=== PATIENT | female | born 1970 | race Caucasian/White ===

== ENCOUNTER 2016-10-17 21:34 | Emergency (ER) | payer OTHER ==
[~2016-10-17 21:34] MED LIST: CIPR500T3 PO; ESCI20TA PO; FLOM5CAP PO; MELA1TAB15 PO; OMEP20CA3 PO; OXYC1TAB23 PO; PYRI200T5 PO; TAMO20TA4 PO; TOPI100T PO; VITMTA PO; ZYRT10CA PO
[2016-10-17 22:42] LABS: BASO % 0.3 % (0.0-1.0); EOS # 0.2 K/mm3 (0.0-0.50); EOS % 3.3 % (0.0-3.0); LARGE UNSTAINED CELL # 0.1 K/mm3 (0.0-0.4); LARGE UNSTAINED CELL % 2.5 % (0.0-4.0); LYMPH # 0.8 K/mm3 (1.5-4.5); LYMPH % 16.9 % (24.0-44.0); MONO # 0.3 K/mm3 (0.0-0.8); MONO % 6.1 % (0.0-5.0); NEUTROPHILS # 3.5 K/mm3 (1.8-7.7); NEUTROPHILS % 70.9 % (36.0-66.0); PLATELET COUNT, AUTOMATED 241 k/mm3 (150-450); RED CELL DISTRIBUTION WIDTH 13.2 % (11.5-14.5); WHITE BLOOD COUNT 4.9 K/mm3 (4.0-10.0)
[2016-10-17 23:09] LABS: ANION GAP 9 MEQ/L (8-16); BLOOD UREA NITROGEN 15 MG/DL (7-18); CALCIUM LEVEL 8.8 MG/DL (8.5-10.1); CARBON DIOXIDE LEVEL 25 MEQ/L (21-32); CHLORIDE LEVEL 107 MEQ/L (98-107); CREATININE FOR GFR 0.81 MG/DL (0.55-1.02); GLOMERULAR FILTRATION RATE > 60.0 (>58); GLUCOSE, FASTING 190 MG/DL (70-105); POTASSIUM SERUM 3.3 MEQ/L (3.5-5.1); SODIUM LEVEL 141 MEQ/L (136-145)
[2016-10-18] MEDS ORDERED: MAGNESIUM CITRATE 300 ML BTL As Ordered ONE (00:42)
[2016-10-18] MEDS ORDERED: POTASSIUM CHLORIDE 10 MEQ SR TABLET As Ordered ONE (00:42)
--- NOTE | 2016-10-18 01:05 | REP ---
Clinical: abdominal pain. Technique: Upright view of the chest with supine and upright views of the abdomen and pelvis. Findings: Frontal upright view of the chest demonstrates no acute cardiopulmonary process or free air below the diaphragm to suspect pneumoperitoneum. Supine and upright views of the abdomen and pelvis demonstrate nonspecific bowel gas pattern without obstruction or perforation. Right ureteral stent and IUD in satisfactory position. No organomegaly. No abnormal calcifications. Skeletal structures normal for age. Impression: Nonspecific bowel gas pattern. Signed by Zeke Kong MD 10/18/2016 12:56 A
--- NOTE | 2016-10-18 01:22 | EDDOCDS ---
Nurse's Notes [facility] Name: Lindsay Duarte Age: 46 yrs Sex: Female : 1970 Arrival Date: 10/17/2016 Time: 21:34 Bed 17 Private MD: Silvana Black Diagnosis: Constipation;Hypokalemia-mild, resolved Presentation: 10/17 21:38 Presenting complaint: Patient states: had stent placement and surgery this past weekend cz for kidney stones pt has continued to have right sided abdominal/flank pain and states has constipation. pt hasnt had a bowel since last and is only voiding in small amounts. Acute neurological deficits are not present. Mechanism of Injury: No Mechanism of Injury. Adult Sepsis Screening: The patient does not have new or worsening altered mentation. Patient's respiratory rate is less than 22. Systolic blood pressure is greater than 100. Patient has a qSOFA score of 0- Negative Sepsis Screen. Suicide/Homicide risk assessment- the patient denies having any suicidal and/or homicidal ideations and does not present with any other emotional, behavioral or mental health complaints. Status: Patient is not a client services analyst or dependent. Transition of care: patient was not received from another setting of care. 21:38 Acuity: KIKO Level 3 cz 21:38 Method Of Arrival: Walkin/Carried/Asstd cz Triage Assessment: 21:44 General: Appears uncomfortable. Pain: Location: right flank Pain currently is 7 out of cz 10 on a pain scale. HIV screening NA for this visit Offered previously. TILER: 21:44 pt has IUD cz Historical: - Allergies: Reglan (itchy); - Home Meds: 1. calcium carbonate 600 mg (1,500 mg) Oral tab 1250 mg daily 2. carboplatin- taxol 175 mg chemo drug 3. Co Q-10 30 mg oral cap daily 4. escitalopram oxalate 20 mg oral tab 1 tab once daily 5. multivitamin Oral tab 1 tab 6. omeprazole 20 mg Oral cpDR 1 cap once daily 7. tamoxifen 20 mg oral tab 1 tab once daily 8. topiramate 100 mg oral cp24 1 cap once daily 9. Zyrtec 10 mg Oral tab 1 tab once daily 10. Cipro 500 mg Oral tab every 12 hours 11. oxycodone-acetaminophen 5-325 mg/5 mL Oral soln every 4 hours (Last dose: 10/17/2016 10:30) 12. tamsulosin 0.4 mg oral cp24 - PMHx: breast cancer; GERD; Migraines; Seasonal Allergies; - PSHx: stent placement; bladder sling; wisdom teeth extraction; llymph gland removal right side; - The history from nurses notes was reviewed: and I agree with what is documented. - Social history: Smoking status: Patient states was never smoker of tobacco. No barriers to communication noted, The patient speaks fluent Hungarian, Speaks appropriately for age. - : The pt / caregiver states he / she is not on anticoagulants. Home medication list is obtained from [employer] import data. - Hospitalizations: : No recent hospitalization is reported. - Exposure Risk Screening:: None identified. - Immunization history:: All immunizations up-to-date. - Family history: Not pertinent. - Social history:: the patient is a non-smoker, the patient does not drink alcohol. Screenin:20 Screening information is obtained from the patient. Fall risk: No risks identified. shaniqua Assistance ADL's: requires no assistance with activities of daily living. Abuse/DV Screen: The patient / caregiver reports he/she is: not in a situation that causes fear, pain or injury. Pt/SO Interaction is appropriate. Nutritional screening: No deficits noted. Advance Directives: Currently, there is no health care proxy. There is no active DNR order. There is no living will. There is no Power of Warehouse Pricing And Inventory Clerk. Advance directive information has not previously been placed in an [facility] medical record. home support is adequate. Assessment: 22:18 General: Appears uncomfortable, Behavior is appropriate for age, cooperative. Pain: shaniqua Location: abdomen and right flank and back Pain currently is 7 out of 10 on a pain scale. back. Neurological: No deficits noted. EENT: No deficits noted. Cardiovascular: No deficits noted. Respiratory: No deficits noted. GI: Abdomen is flat, distended. Derm: Skin is pink, warm & dry. Musculoskeletal: No deficits noted. 23:30 General: Pt has expelled oil retention enema without stool present. Dr. Newberry notified..shaniqua 23:30 General: Appears uncomfortable. Neurological: No deficits noted. Cardiovascular: No shaniqua deficits noted. Respiratory: No deficits noted. GI: Abdomen is distended. 01/04 00:08 General: Pt passing small amounts constipated stools.. shaniqua 00:30 Reassessment: Patient states symptoms have improved. Pt has had a moderate amount of shaniqua hard stool. Dr. Newberry notified.. 01:14 Reassessment: Patient appears in no apparent distress at this time. Patient states shaniqua feeling better. Neurological: No deficits noted. Cardiovascular: No deficits noted. Respiratory: No deficits noted. GI: Abdomen is distended. Derm: Skin is pink, warm & dry. Vital Signs: 10/17 21:36 BP 143 / 87; Pulse 103; Resp 18; Temp 97.4(O); Pulse Ox 97% on R/A; Weight 88.45 kg gr2 (R); Height 5 ft. 8 in. (172.72 cm) (R); Pain 8/10; 10/18 00:31 BP 170 / 106; Pulse 77; Resp 20; Temp 99.1(O); Pulse Ox 99% on R/A; shaniqua 00:39 BP 146 / 94 LA Supine (man/); shaniqua 10/17 21:36 Body Mass Index 29.65 (88.45 kg, 172.72 cm) gr2 Vitals: 10/17 21:36 Log In Time: October 17, 2016 at 21:36. gr2 ED Course: 21:36 Patient visited by Dorcas Corcoran. gr2 21:36 Silvana Black is Private Physician. gr2 21:36 Patient moved to Waiting gr2 21:38 Patient visited by Dorcas Corcorna. gr2 21:38 Patient moved to Pre RCE gr2 21:41 Triage Initiated cz 21:56 Barbara Mendes,RN is Primary Nurse. ar3 21:56 Patient moved to 17 ar3 22:06 Jones Newberry MD is Attending Physician. pc 22:18 Patient visited by Barbara Mendes RN. shaniqua 22:20 The patient / caregiver is instructed regarding the plan of care and ED course. shaniqua 22:21 Patient visited by Jones Newberry MD. pc 22:30 Inserted saline lock: 20 gauge in left antecubital area and blood collected. No shaniqua procedures done that require assistance. 22:33 CBC with Diff Sent. shaniqua 22:33 MED Profile Sent. shaniqua 22:33 Urinalysis Sent. shaniqua 22:33 Urine Culture Sent. shaniqua 23:15 Patient visited by Barbara Mendes RN. shaniqua 23:47 Patient visited by Barbara Mendes RN. shaniqua 10/18 00:06 Patient visited by Barbara Mendes RN. shaniqua 00:30 Patient visited by Barbara Mendes RN. shaniqua 00:37 Silvana Black is Referral Physician. pc 01:16 Discontinued lock intact, bleeding controlled, pressure dressing applied, No shaniqua redness/swelling at site. 01:22 [facility] Payment Agreement was scanned into [employer] and attached to record. jp5 Administered Medications: 01:14 Drug: Magnesium Citrate 300 ml [magnesium citrate oral solution (300 mL)] Route: PO; shaniqua 01:14 Drug: Potassium Chloride 40 mEq [potassium chloride ER 10 mEq tablet,extended release shaniqua (4 tabs)] Route: PO; Order Results: Lab Order: CBC with Diff; SPEC'M 10/17/16 22:30 Test: WHITE BLOOD COUNT; Value: 4.9; Range: 4.0-10.0; Units: K/mm3; Status: F Test: RED BLOOD COUNT; Value: 4.14; Range: 4.00-5.40; Units: M/mm3; Status: F Test: HEMOGLOBIN; Value: 12.0; Range: 12.0-16.0; Units: g/dl; Status: F Test: HEMATOCRIT; Value: 36.4; Range: 36.0-47.0; Units: %; Status: F Test: MEAN CORPUSCULAR VOLUME; Value: 88.0; Range: 80.0-96.0; Units: fl; Status: F Test: MEAN CORPUSCULAR HEMOGLOBIN; Value: 29.0; Range: 27.0-33.0; Units: pg; Status: F Test: MEAN CORPUSCULAR HGB CONC; Value: 33.0; Range: 32.0-36.5; Units: g/dl; Status: F Test: RED CELL DISTRIBUTION WIDTH; Value: 13.2; Range: 11.5-14.5; Units: %; Status: F Test: PLATELET COUNT, AUTOMATED; Value: 241; Range: 150-450; Units: k/mm3; Status: F Test: NEUTROPHILS %; Value: 70.9; Range: 36.0-66.0; Abnormal: Above high normal; Units: %; Status: F Test: LYMPH %; Value: 16.9; Range: 24.0-44.0; Abnormal: Below low normal; Units: %; Status: F Test: MONO %; Value: 6.1; Range: 0.0-5.0; Abnormal: Above high normal; Units: %; Status: F Test: EOS %; Value: 3.3; Range: 0.0-3.0; Abnormal: Above high normal; Units: %; Status: F Test: BASO %; Value: 0.3; Range: 0.0-1.0; Units: %; Status: F Test: LARGE UNSTAINED CELL %; Value: 2.5; Range: 0.0-4.0; Units: %; Status: F Test: NEUTROPHILS #; Value: 3.5; Range: 1.8-7.7; Units: K/mm3; Status: F Test: LYMPH #; Value: 0.8; Range: 1.5-4.5; Abnormal: Below low normal; Units: K/mm3; Status: F Test: MONO #; Value: 0.3; Range: 0.0-0.8; Units: K/mm3; Status: F Test: EOS #; Value: 0.2; Range: 0.0-0.50; Units: K/mm3; Status: F Test: BASO #; Value: 0.0; Range: 0.0-0.2; Units: K/mm3; Status: F Test: LARGE UNSTAINED CELL #; Value: 0.1; Range: 0.0-0.4; Units: K/mm3; Status: F Lab Order: MED Profile; SPEC'M 10/17/16 22:30 Test: GLUCOSE, FASTING; Value: 190; Range: 70-105; Abnormal: Above high normal; Units: MG/DL; Status: F Test: BLOOD UREA NITROGEN; Value: 15; Range: 7-18; Units: MG/DL; Status: F Test: CREATININE FOR GFR; Value: 0.81; Range: 0.55-1.02; Units: MG/DL; Status: F Test: GLOMERULAR FILTRATION RATE; Value: > 60.0; Range: >58; Status: F Test: SODIUM LEVEL; Value: 141; Range: 136-145; Units: MEQ/L; Status: F Test: POTASSIUM SERUM; Value: 3.3; Range: 3.5-5.1; Abnormal: Below low normal; Units: MEQ/L; Status: F Test: CHLORIDE LEVEL; Value: 107; Range: 98-107; Units: MEQ/L; Status: F Test: CARBON DIOXIDE LEVEL; Value: 25; Range: 21-32; Units: MEQ/L; Status: F Test: ANION GAP; Value: 9; Range: 8-16; Units: MEQ/L; Status: F Test: CALCIUM LEVEL; Value: 8.8; Range: 8.5-10.1; Units: MG/DL; Status: F Test Note: ; Units are mL/min/1.73 m2 Chronic Kidney Disease Staging per NKF: Stage I & II GFR >=60 Normal to Mildly Decreased Stage III GFR 30-59 Moderately Decreased Stage IV GFR 15-29 Severely Decreased Stage V GFR <15 Very Little GFR Left ESRD GFR <15 on BROOM BUILDER Lab Order: Urinalysis; SPEC'M 10/17/16 22:30 Test: APPEARANCE, URINE; Value: CLOUDY; Range: CLEAR; Abnormal: Above high normal; Status: F Test: COLOR, URINE; Value: TONY; Range: YELLOW; Status: F Test: PH,URINE; Value: 6.0; Range: 5.0-9.0; Units: UNITS; Status: F Test: SPECIFIC GRAVITY URINE AUTO; Value: 1.014; Range: 1.002-1.035; Status: F Test: PROTEIN, URINE AUTO; Value: 2+; Range: NEGATIVE; Abnormal: Above high normal; Units: mg/dL; Status: F Test: GLUCOSE, URINE (UA) AUTO; Value: NEGATIVE; Range: NEGATIVE; Units: mg/dL; Status: F Test: KETONE, URINE AUTO; Value: NEGATIVE; Range: NEGATIVE; Units: mg/dL; Status: F Test: UROBILINOGEN, URINE AUTO; Value: 2.0; Range: 0.0-2.0; Abnormal: Above high normal; Units: mg/dL; Status: F Test: BILIRUBIN, URINE AUTO; Value: NEGATIVE; Range: NEGATIVE; Status: F Test: NITRITE, URINE AUTO; Value: POSITIVE; Range: NEGATIVE; Status: F Test: LEUKOCYTE ESTERASE, URINE AUTO; Value: 3+; Range: NEGATIVE; Abnormal: Above high normal; Status: F Test: BLOOD, URINE BLOOD; Value: 3+; Range: NEGATIVE; Abnormal: Above high normal; Status: F Test: WBC, URINE AUTO; Value: 81; Range: 0-3; Abnormal: Above high normal; Units: /HPF; Status: F Test: RBC, URINE AUTO; Value: TNTC; Range: 0-3; Abnormal: Above high normal; Units: /HPF; Status: F Test: BACTERIA, URINE AUTO; Value: 1+; Range: NEGATIVE; Abnormal: Above high normal; Status: F Test: SQUAMOUS EPITHELIAL CELL UR AU; Value: 4; Range: 0-6; Units: /HPF; Status: F Test: MUCUS, URINE; Value: SMALL; Range: NEGATIVE; Status: F Test: HYALINE CAST, URINE AUTO; Value: 0; Range: 0-1; Units: /LPF; Status: F Test: AMORPHOUS SEDIMENT; Value: SMALL; Range: NEGATIVE; Abnormal: Above high normal; Status: F Outcome: 00:37 Discharge ordered by Provider. 01:16 Discharge Assessment: patient administered narcotics - no. The following High Risk shaniqua Discharge criteria are identified: None. Discharged to home ambulatory, with family. Condition: improved. No special radiology studies were completed. Property :Personal belongings accompany Pt. 01:21 Patient left the ED. shaniqua Signatures: Jones Newberry MD MD pc Sovie, Carolyn,RN RN Yash Ring, RN RN Ana Wilkinson, MANAGER ARCHITECTURAL MANAGER ARCHITECTURAL ar3 Dorcas Corcoran2 Em Hutchins jp5 MTDMark
--- NOTE | 2016-10-18 01:22 | EDDOCDS ---
Physician Documentation [facility] Name: Lindsay Duarte Age: 46 yrs Sex: Female : 1970 Arrival Date: 10/17/2016 Time: 21:34 Bed 17 Private MD: Silvana Black Disposition: 10/18 00:35 Critical Care: Critical care not applicable. pc Disposition: 10/18/16 00:37 Discharged to Home/Self Care. Impression: Constipation, Hypokalemia - mild, resolved. - Condition is Stable. - Discharge Instructions: Constipation, Adult. - Prescriptions for Miralax 17 gram/dose - take 17 gram by ORAL route once daily As needed dilute in 8 ounces of water or juice; 1 bottle. - Medication Reconciliation, Local Pharmacy Hours form. - Follow up: Silvana Black; When: Call to arrange an appointment; Reason: Continuance of care. - Problem is an ongoing problem. - Symptoms have improved. HPI: 10/17 22:25 This 46 yrs old Female presents to ER via Walkin/Carried/Asstd with pc complaints of Possible Kidney Stone, Constipation. 22:25 The history is obtained from the patient. She is 3 days s/p right ureteral stent pc placement and lithotripsy for multiple obstructing right ureteral stones. She has adán constipated from Percocet, with no bowel movement in 4 days. She has been having right and left flank pain without nausea. She as been drinking fluids but says she has had dark urine with small volumes. She denies any fevers or chills. Historical: - Allergies: Reglan (itchy); - Home Meds: 1. calcium carbonate 600 mg (1,500 mg) Oral tab 1250 mg daily 2. carboplatin- taxol 175 mg chemo drug 3. Co Q-10 30 mg oral cap daily 4. escitalopram oxalate 20 mg oral tab 1 tab once daily 5. multivitamin Oral tab 1 tab 6. omeprazole 20 mg Oral cpDR 1 cap once daily 7. tamoxifen 20 mg oral tab 1 tab once daily 8. topiramate 100 mg oral cp24 1 cap once daily 9. Zyrtec 10 mg Oral tab 1 tab once daily 10. Cipro 500 mg Oral tab every 12 hours 11. oxycodone-acetaminophen 5-325 mg/5 mL Oral soln every 4 hours (Last dose: 10/17/2016 10:30) 12. tamsulosin 0.4 mg oral cp24 - PMHx: breast cancer; GERD; Migraines; Seasonal Allergies; - PSHx: stent placement; bladder sling; wisdom teeth extraction; llymph gland removal right side; - The history from nurses notes was reviewed: and I agree with what is documented. - Social history: Smoking status: Patient states was never smoker of tobacco. No barriers to communication noted, The patient speaks fluent Bahraini, Speaks appropriately for age. - : The pt / caregiver states he / she is not on anticoagulants. Home medication list is obtained from [employer] import data. - Hospitalizations: : No recent hospitalization is reported. - Exposure Risk Screening:: None identified. - Immunization history:: All immunizations up-to-date. - Family history: Not pertinent. - Social history:: the patient is a non-smoker, the patient does not drink alcohol. 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 pc Exam: 22:25 General Appearance: alert, the patient is in mild distress. pc 22:25 EENT: normal eye inspection, ears, nose and throat normal, pharynx normal, mucous membranes moist 22:25 Neck: The exam reveals no acute abnormalities. ROM is normal and painless. No nuchal rigidity is noted.. 22:25 Respiratory: no respiratory distress, normal breath sounds. 22:25 CVS: regular pulse rate, regular rhythm, normal S1 and S2, no murmurs, strong peripheral pulses. 22:25 Abdomen: soft, distended, mild tenderness in the right lower quadrant and left lower quadrant, without rebound, voluntary guarding is not appreciated, involuntary guarding is not appreciated, bowel sounds diminished. 22:25 Back: CVA tenderness is noted bilaterally. 22:25 Skin: skin color is normal, warm, dry. 22:25 Extremities: The extremities have a grossly normal appearance, are non-tender, without acute ROM abnormalities. 22:25 Neuro: oriented x 3, cranial nerves normal as tested. 22:25 Psych: normal mood. Vital Signs: 21:36 BP 143 / 87; Pulse 103; Resp 18; Temp 97.4(O); Pulse Ox 97% on R/A; Weight 88.45 kg / gr2 195 lbs (R); Height 5 ft. 8 in. (172.72 cm) (R); Pain 8/10; 10/18 00:31 BP 170 / 106; Pulse 77; Resp 20; Temp 99.1(O); Pulse Ox 99% on R/A; shaniqua 00:39 BP 146 / 94 LA Supine (man/); shaniqua 10/17 21:36 Body Mass Index 29.65 (88.45 kg, 172.72 cm) gr2 MDM: 10/17 22:21 IV Saline Lock ordered. pc 22:22 CBC with Diff Ordered. EDMS 22:22 MED Profile Ordered. EDMS 22:22 Urinalysis Ordered. EDMS 22:22 Urine Culture Ordered. EDMS 22:22 Abdomen, Flat\E\Upright,PA Chest Ordered. EDMS 22:24 Data reviewed: The patient's [facility] records were accessed, as they were informed. pc 22:25 Differential Diagnosis: constipation, bilateral CVA pain with known stones, decreased pc urine output on Cipro r/o ARF. Plan: labs, imaging. 22:56 CBC with Diff Reviewed. pc 22:56 Urinalysis Reviewed. pc 22:59 Test interpretation: X-RAY - interpreted by me, 3-view abdomen series; constipation. pc 22:59 Enema - Oil Retention ordered. pc 23:12 MED Profile Reviewed. pc 23:35 Enema - [place] ordered. pc 10/18 00:35 Data reviewed: lab test results. Test interpretation: LAB - all labs as ordered have pc been reviewed, interpreted and considered in the overall management of the clinical presentation;. The patient has been re-examined and re-evaluated. The patient's symptoms have markedly improved after treatment, with a large stooling after enema. Disposition: The historical points, examination findings, and any diagnostic results supporting the provided diagnosis, were discussed with the patient or legal guardian. The need for outpatient follow up with the provider listed on their discharge instructions was discussed. They were encouraged to return to [facility], or the nearest ED, if symptoms worsen/persist, or for any other questions/concerns. 00:38 Magnesium Citrate Liquid 300 ml PO once; Dispense home with pt. Take in the morning pc ordered. 00:39 Potassium Chloride Extended Release Tablet 40 mEq PO once ordered. pc 01:22 [facility] Payment Agreement was scanned into [employer] and attached to record. jp5 Administered Medications: 01:14 Drug: Magnesium Citrate 300 ml [magnesium citrate oral solution (300 mL)] Route: PO; shaniqua 01:14 Drug: Potassium Chloride 40 mEq [potassium chloride ER 10 mEq tablet,extended release shaniqua (4 tabs)] Route: PO; Signatures: Dispatcher [employer] Jones Nuñez MD MD pc Sovie, CarolynRN RN Yash Ring RN RN cz Price, Jennalee jp5 The chart was reviewed and I authenticate all verbal orders and agree with the evaluation and treatment provided.Attachments: 01:22 [facility] Payment Agreement [email or web address] MTDD
--- NOTE | 2016-10-20 02:23 | EDDOCDS ---
Physician Documentation [facility] Name: Lindsay Duarte Age: 46 yrs Sex: Female : 1970 Arrival Date: 10/17/2016 Time: 21:34 Bed 17 Private MD: Silvana Black Disposition: 10/18 00:35 Critical Care: Critical care not applicable. pc Disposition: 10/18/16 00:37 Discharged to Home/Self Care. Impression: Constipation, Hypokalemia - mild, resolved. - Condition is Stable. - Discharge Instructions: Constipation, Adult. - Prescriptions for Miralax 17 gram/dose - take 17 gram by ORAL route once daily As needed dilute in 8 ounces of water or juice; 1 bottle. - Medication Reconciliation, Local Pharmacy Hours form. - Follow up: Silvana Black; When: Call to arrange an appointment; Reason: Continuance of care. - Problem is an ongoing problem. - Symptoms have improved. HPI: 10/17 22:25 This 46 yrs old Female presents to ER via Walkin/Carried/Asstd with pc complaints of Possible Kidney Stone, Constipation. 22:25 The history is obtained from the patient. She is 3 days s/p right ureteral stent pc placement and lithotripsy for multiple obstructing right ureteral stones. She has adán constipated from Percocet, with no bowel movement in 4 days. She has been having right and left flank pain without nausea. She as been drinking fluids but says she has had dark urine with small volumes. She denies any fevers or chills. Historical: - Allergies: Reglan (itchy); - Home Meds: 1. calcium carbonate 600 mg (1,500 mg) Oral tab 1250 mg daily 2. carboplatin- taxol 175 mg chemo drug 3. Co Q-10 30 mg oral cap daily 4. escitalopram oxalate 20 mg oral tab 1 tab once daily 5. multivitamin Oral tab 1 tab 6. omeprazole 20 mg Oral cpDR 1 cap once daily 7. tamoxifen 20 mg oral tab 1 tab once daily 8. topiramate 100 mg oral cp24 1 cap once daily 9. Zyrtec 10 mg Oral tab 1 tab once daily 10. Cipro 500 mg Oral tab every 12 hours 11. oxycodone-acetaminophen 5-325 mg/5 mL Oral soln every 4 hours (Last dose: 10/17/2016 10:30) 12. tamsulosin 0.4 mg oral cp24 - PMHx: breast cancer; GERD; Migraines; Seasonal Allergies; - PSHx: stent placement; bladder sling; wisdom teeth extraction; llymph gland removal right side; - The history from nurses notes was reviewed: and I agree with what is documented. - Social history: Smoking status: Patient states was never smoker of tobacco. No barriers to communication noted, The patient speaks fluent Salvadorean, Speaks appropriately for age. - : The pt / caregiver states he / she is not on anticoagulants. Home medication list is obtained from [employer] import data. - Hospitalizations: : No recent hospitalization is reported. - Exposure Risk Screening:: None identified. - Immunization history:: All immunizations up-to-date. - Family history: Not pertinent. - Social history:: the patient is a non-smoker, the patient does not drink alcohol. DIRECTOR CRITICAL CARE: 21:44 pt has IUD cz ROS: 22:25 All systems are negative except as listed. pc Exam: 22:25 General Appearance: alert, the patient is in mild distress. pc 22:25 EENT: normal eye inspection, ears, nose and throat normal, pharynx normal, mucous membranes moist 22:25 Neck: The exam reveals no acute abnormalities. ROM is normal and painless. No nuchal rigidity is noted.. 22:25 Respiratory: no respiratory distress, normal breath sounds. 22:25 CVS: regular pulse rate, regular rhythm, normal S1 and S2, no murmurs, strong peripheral pulses. 22:25 Abdomen: soft, distended, mild tenderness in the right lower quadrant and left lower quadrant, without rebound, voluntary guarding is not appreciated, involuntary guarding is not appreciated, bowel sounds diminished. 22:25 Back: CVA tenderness is noted bilaterally. 22:25 Skin: skin color is normal, warm, dry. 22:25 Extremities: The extremities have a grossly normal appearance, are non-tender, without acute ROM abnormalities. 22:25 Neuro: oriented x 3, cranial nerves normal as tested. 22:25 Psych: normal mood. Vital Signs: 21:36 BP 143 / 87; Pulse 103; Resp 18; Temp 97.4(O); Pulse Ox 97% on R/A; Weight 88.45 kg / gr2 195 lbs (R); Height 5 ft. 8 in. (172.72 cm) (R); Pain 8/10; 10/18 00:31 BP 170 / 106; Pulse 77; Resp 20; Temp 99.1(O); Pulse Ox 99% on R/A; shaniqua 00:39 BP 146 / 94 LA Supine (man/); shaniqua 10/17 21:36 Body Mass Index 29.65 (88.45 kg, 172.72 cm) gr2 MDM: 10/17 22:21 IV Saline Lock ordered. pc 22:22 CBC with Diff Ordered. EDMS 22:22 MED Profile Ordered. EDMS 22:22 Urinalysis Ordered. EDMS 22:22 Urine Culture Ordered. EDMS 22:22 Abdomen, Flat\E\Upright,PA Chest Ordered. EDMS 22:24 Data reviewed: The patient's [facility] records were accessed, as they were informed. pc 22:25 Differential Diagnosis: constipation, bilateral CVA pain with known stones, decreased pc urine output on Cipro r/o ARF. Plan: labs, imaging. 22:56 CBC with Diff Reviewed. pc 22:56 Urinalysis Reviewed. pc 22:59 Test interpretation: X-RAY - interpreted by il, 3-view abdomen series; constipation. pc 22:59 Enema - Oil Retention ordered. pc 23:12 MED Profile Reviewed. pc 23:35 Enema - Tapwater ordered. pc 10/18 00:35 Data reviewed: lab test results. Test interpretation: LAB - all labs as ordered have pc been reviewed, interpreted and considered in the overall management of the clinical presentation;. The patient has been re-examined and re-evaluated. The patient's symptoms have markedly improved after treatment, with a large stooling after enema. Disposition: The historical points, examination findings, and any diagnostic results supporting the provided diagnosis, were discussed with the patient or legal guardian. The need for outpatient follow up with the provider listed on their discharge instructions was discussed. They were encouraged to return to [facility], or the nearest ED, if symptoms worsen/persist, or for any other questions/concerns. 00:38 Magnesium Citrate Liquid 300 ml PO once; Dispense home with pt. Take in the morning pc ordered. 00:39 Potassium Chloride Extended Release Tablet 40 mEq PO once ordered. pc 01:22 [facility] Agreement was scanned into [employer] and attached to record. jp5 01:22 Financial registration complete. jp5 Administered Medications: 01:14 Drug: Magnesium Citrate 300 ml [magnesium citrate oral solution (300 mL)] Route: PO; shaniqua 01:14 Drug: Potassium Chloride 40 mEq [potassium chloride ER 10 mEq tablet,extended release shaniqua (4 tabs)] Route: PO; Signatures: Dispatcher [employer] Jones Nuñez MD MD pc Sovie, Carolyn, RN RN cas Zecher, Calvin, RN RN cz Price, Jennalee jp5 The chart was reviewed and I authenticate all verbal orders and agree with the evaluation and treatment provided.Attachments: 01:22 [facility] Payment Agreement jp5 Chart Complete MTDD
--- NOTE | 2016-10-20 02:23 | EDDOCDS ---
Physician Documentation [facility] Name: Lindsay Duarte Age: 46 yrs Sex: Female : 1970 Arrival Date: 10/17/2016 Time: 21:34 Bed 17 Private MD: Silvana Black Disposition: 10/18 00:35 Critical Care: Critical care not applicable. pc Disposition: 10/18/16 00:37 Discharged to Home/Self Care. Impression: Constipation, Hypokalemia - mild, resolved. - Condition is Stable. - Discharge Instructions: Constipation, Adult. - Prescriptions for Miralax 17 gram/dose - take 17 gram by ORAL route once daily As needed dilute in 8 ounces of water or juice; 1 bottle. - Medication Reconciliation, Local Pharmacy Hours form. - Follow up: Silvana Black; When: Call to arrange an appointment; Reason: Continuance of care. - Problem is an ongoing problem. - Symptoms have improved. HPI: 10/17 22:25 This 46 yrs old Female presents to ER via Walkin/Carried/Asstd with pc complaints of Possible Kidney Stone, Constipation. 22:25 The history is obtained from the patient. She is 3 days s/p right ureteral stent pc placement and lithotripsy for multiple obstructing right ureteral stones. She has adán constipated from Percocet, with no bowel movement in 4 days. She has been having right and left flank pain without nausea. She as been drinking fluids but says she has had dark urine with small volumes. She denies any fevers or chills. Historical: - Allergies: Reglan (itchy); - Home Meds: 1. calcium carbonate 600 mg (1,500 mg) Oral tab 1250 mg daily 2. carboplatin- taxol 175 mg chemo drug 3. Co Q-10 30 mg oral cap daily 4. escitalopram oxalate 20 mg oral tab 1 tab once daily 5. multivitamin Oral tab 1 tab 6. omeprazole 20 mg Oral cpDR 1 cap once daily 7. tamoxifen 20 mg oral tab 1 tab once daily 8. topiramate 100 mg oral cp24 1 cap once daily 9. Zyrtec 10 mg Oral tab 1 tab once daily 10. Cipro 500 mg Oral tab every 12 hours 11. oxycodone-acetaminophen 5-325 mg/5 mL Oral soln every 4 hours (Last dose: 10/17/2016 10:30) 12. tamsulosin 0.4 mg oral cp24 - PMHx: breast cancer; GERD; Migraines; Seasonal Allergies; - PSHx: stent placement; bladder sling; wisdom teeth extraction; llymph gland removal right side; - The history from nurses notes was reviewed: and I agree with what is documented. - Social history: Smoking status: Patient states was never smoker of tobacco. No barriers to communication noted, The patient speaks fluent Bahamian, Speaks appropriately for age. - : The pt / caregiver states he / she is not on anticoagulants. Home medication list is obtained from [employer] import data. - Hospitalizations: : No recent hospitalization is reported. - Exposure Risk Screening:: None identified. - Immunization history:: All immunizations up-to-date. - Family history: Not pertinent. - Social history:: the patient is a non-smoker, the patient does not drink alcohol. SURG RN: 21:44 pt has IUD cz ROS: 22:25 All systems are negative except as listed. pc Exam: 22:25 General Appearance: alert, the patient is in mild distress. pc 22:25 EENT: normal eye inspection, ears, nose and throat normal, pharynx normal, mucous membranes moist 22:25 Neck: The exam reveals no acute abnormalities. ROM is normal and painless. No nuchal rigidity is noted.. 22:25 Respiratory: no respiratory distress, normal breath sounds. 22:25 CVS: regular pulse rate, regular rhythm, normal S1 and S2, no murmurs, strong peripheral pulses. 22:25 Abdomen: soft, distended, mild tenderness in the right lower quadrant and left lower quadrant, without rebound, voluntary guarding is not appreciated, involuntary guarding is not appreciated, bowel sounds diminished. 22:25 Back: CVA tenderness is noted bilaterally. 22:25 Skin: skin color is normal, warm, dry. 22:25 Extremities: The extremities have a grossly normal appearance, are non-tender, without acute ROM abnormalities. 22:25 Neuro: oriented x 3, cranial nerves normal as tested. 22:25 Psych: normal mood. Vital Signs: 21:36 BP 143 / 87; Pulse 103; Resp 18; Temp 97.4(O); Pulse Ox 97% on R/A; Weight 88.45 kg / gr2 195 lbs (R); Height 5 ft. 8 in. (172.72 cm) (R); Pain 8/10; 10/18 00:31 BP 170 / 106; Pulse 77; Resp 20; Temp 99.1(O); Pulse Ox 99% on R/A; shaniqua 00:39 BP 146 / 94 LA Supine (man/); shaniqua 10/17 21:36 Body Mass Index 29.65 (88.45 kg, 172.72 cm) gr2 MDM: 10/17 22:21 IV Saline Lock ordered. pc 22:22 CBC with Diff Ordered. EDMS 22:22 MED Profile Ordered. EDMS 22:22 Urinalysis Ordered. EDMS 22:22 Urine Culture Ordered. EDMS 22:22 Abdomen, Flat\E\Upright,PA Chest Ordered. EDMS 22:24 Data reviewed: The patient's [facility] records were accessed, as they were informed. pc 22:25 Differential Diagnosis: constipation, bilateral CVA pain with known stones, decreased pc urine output on Cipro r/o ARF. Plan: labs, imaging. 22:56 CBC with Diff Reviewed. pc 22:56 Urinalysis Reviewed. pc 22:59 Test interpretation: X-RAY - interpreted by vt, 3-view abdomen series; constipation. pc 22:59 Enema - Oil Retention ordered. pc 23:12 MED Profile Reviewed. pc 23:35 Enema - Tapwater ordered. pc 10/18 00:35 Data reviewed: lab test results. Test interpretation: LAB - all labs as ordered have pc been reviewed, interpreted and considered in the overall management of the clinical presentation;. The patient has been re-examined and re-evaluated. The patient's symptoms have markedly improved after treatment, with a large stooling after enema. Disposition: The historical points, examination findings, and any diagnostic results supporting the provided diagnosis, were discussed with the patient or legal guardian. The need for outpatient follow up with the provider listed on their discharge instructions was discussed. They were encouraged to return to [facility], or the nearest ED, if symptoms worsen/persist, or for any other questions/concerns. 00:38 Magnesium Citrate Liquid 300 ml PO once; Dispense home with pt. Take in the morning pc ordered. 00:39 Potassium Chloride Extended Release Tablet 40 mEq PO once ordered. pc 01:22 [facility] Payment Agreement was scanned into [employer] and attached to record. jp5 01:22 Financial registration complete. jp5 Administered Medications: 01:14 Drug: Magnesium Citrate 300 ml [magnesium citrate oral solution (300 mL)] Route: PO; shaniqua 01:14 Drug: Potassium Chloride 40 mEq [potassium chloride ER 10 mEq tablet,extended release shaniqua (4 tabs)] Route: PO; Signatures: Dispatcher [employer] Jones Nuñez MD MD pc Sovie, Carolyn, RN RN cas Zecher, Calvin, RN RN cz Price, Jennalee jp5 The chart was reviewed and I authenticate all verbal orders and agree with the evaluation and treatment provided.Attachments: 01:22 [facility] Payment Agreement jp5 Chart Complete MTDD
--- NOTE | 2016-10-20 02:23 | EDDOCDS ---
Nurse's Notes [facility] Name: Lindsay Duarte Age: 46 yrs Sex: Female : 1970 Arrival Date: 10/17/2016 Time: 21:34 Bed 17 Private MD: Silvana Black Diagnosis: Constipation;Hypokalemia-mild, resolved Presentation: 10/17 21:38 Presenting complaint: Patient states: had stent placement and surgery this past weekend cz for kidney stones pt has continued to have right sided abdominal/flank pain and states has constipation. pt hasnt had a bowel since last and is only voiding in small amounts. Acute neurological deficits are not present. Mechanism of Injury: No Mechanism of Injury. Adult Sepsis Screening: The patient does not have new or worsening altered mentation. Patient's respiratory rate is less than 22. Systolic blood pressure is greater than 100. Patient has a qSOFA score of 0- Negative Sepsis Screen. Suicide/Homicide risk assessment- the patient denies having any suicidal and/or homicidal ideations and does not present with any other emotional, behavioral or mental health complaints. Status: Patient is not a client services administrator or dependent. Transition of care: patient was not received from another setting of care. 21:38 Acuity: KIKO Level 3 cz 21:38 Method Of Arrival: Walkin/Carried/Asstd cz Triage Assessment: 21:44 General: Appears uncomfortable. Pain: Location: right flank Pain currently is 7 out of cz 10 on a pain scale. 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 calcium carbonate 600 mg (1,500 mg) Oral tab 1250 mg daily 2. carboplatin- taxol 175 mg chemo drug 3. Co Q-10 30 mg oral cap daily 4. escitalopram oxalate 20 mg oral tab 1 tab once daily 5. multivitamin Oral tab 1 tab 6. omeprazole 20 mg Oral cpDR 1 cap once daily 7. tamoxifen 20 mg oral tab 1 tab once daily 8. topiramate 100 mg oral cp24 1 cap once daily 9. Zyrtec 10 mg Oral tab 1 tab once daily 10. Cipro 500 mg Oral tab every 12 hours 11. oxycodone-acetaminophen 5-325 mg/5 mL Oral soln every 4 hours (Last dose: 10/17/2016 10:30) 12. tamsulosin 0.4 mg oral cp24 - PMHx: breast cancer; GERD; Migraines; Seasonal Allergies; - PSHx: stent placement; bladder sling; wisdom teeth extraction; llymph gland removal right side; - The history from nurses notes was reviewed: and I agree with what is documented. - Social history: Smoking status: Patient states was never smoker of tobacco. No barriers to communication noted, The patient speaks fluent Greek, Speaks appropriately for age. - : The pt / caregiver states he / she is not on anticoagulants. Home medication list is obtained from [employer] import data. - Hospitalizations: : No recent hospitalization is reported. - Exposure Risk Screening:: None identified. - Immunization history:: All immunizations up-to-date. - Family history: Not pertinent. - Social history:: the patient is a non-smoker, the patient does not drink alcohol. Screenin:20 Screening information is obtained from the patient. Fall risk: No risks identified. shaniqua Assistance ADL's: requires no assistance with activities of daily living. Abuse/DV Screen: The patient / caregiver reports he/she is: not in a situation that causes fear, pain or injury. Pt/SO Interaction is appropriate. Nutritional screening: No deficits noted. Advance Directives: Currently, there is no health care proxy. There is no active DNR order. There is no living will. There is no Power of Warehouse Loader. Advance directive information has not previously been placed in an [facility] medical record. home support is adequate. Assessment: 22:18 General: Appears uncomfortable, Behavior is appropriate for age, cooperative. Pain: shaniqua Location: abdomen and right flank and back Pain currently is 7 out of 10 on a pain scale. back. Neurological: No deficits noted. EENT: No deficits noted. Cardiovascular: No deficits noted. Respiratory: No deficits noted. GI: Abdomen is flat, distended. Derm: Skin is pink, warm & dry. Musculoskeletal: No deficits noted. 23:30 General: Pt has expelled oil retention enema without stool present. Dr. Newberry notified..shaniqua 23:30 General: Appears uncomfortable. Neurological: No deficits noted. Cardiovascular: No shaniqua deficits noted. Respiratory: No deficits noted. GI: Abdomen is distended. 01/04 00:08 General: Pt passing small amounts constipated stools.. shaniqua 00:30 Reassessment: Patient states symptoms have improved. Pt has had a moderate amount of shaniqua hard stool. Dr. Newberry notified.. 01:14 Reassessment: Patient appears in no apparent distress at this time. Patient states shaniqua feeling better. Neurological: No deficits noted. Cardiovascular: No deficits noted. Respiratory: No deficits noted. GI: Abdomen is distended. Derm: Skin is pink, warm & dry. Vital Signs: 10/17 21:36 BP 143 / 87; Pulse 103; Resp 18; Temp 97.4(O); Pulse Ox 97% on R/A; Weight 88.45 kg gr2 (R); Height 5 ft. 8 in. (172.72 cm) (R); Pain 8/10; 10/18 00:31 BP 170 / 106; Pulse 77; Resp 20; Temp 99.1(O); Pulse Ox 99% on R/A; shaniqua 00:39 BP 146 / 94 LA Supine (man/); shaniqua 10/17 21:36 Body Mass Index 29.65 (88.45 kg, 172.72 cm) gr2 Vitals: 10/17 21:36 Log In Time: October 17, 2016 at 21:36. gr2 ED Course: 21:36 Patient visited by Dorcas Corcoran. gr2 21:36 Silvana Black is Private Physician. gr2 21:36 Patient moved to Waiting gr2 21:38 Patient visited by Dorcas Corcoran. gr2 21:38 Patient moved to Pre RCE gr2 21:41 Triage Initiated cz 21:56 Barbara Mendes,RN is Primary Nurse. ar3 21:56 Patient moved to 17 ar3 22:06 Jones Newberry MD is Attending Physician. pc 22:18 Patient visited by Barbara Mendes RN. shaniqua 22:20 The patient / caregiver is instructed regarding the plan of care and ED course. shaniqua 22:21 Patient visited by Jones Newberry MD. pc 22:30 Inserted saline lock: 20 gauge in left antecubital area and blood collected. No shaniqua procedures done that require assistance. 22:33 CBC with Diff Sent. shaniqua 22:33 MED Profile Sent. shaniqua 22:33 Urinalysis Sent. shaniqua 22:33 Urine Culture Sent. shaniqua 23:15 Patient visited by Barbara MendesRN. shaniqua 23:47 Patient visited by Barbara Mendes,RN. shaniqua 10/18 00:06 Patient visited by Barbara Mendes RN. shaniqua 00:30 Patient visited by Barbara Mendes,RN. shaniqua 00:37 Silvana Black is Referral Physician. pc 01:16 Discontinued lock intact, bleeding controlled, pressure dressing applied, No shaniqua redness/swelling at site. 01:22 [facility] [place] was scanned into [employer] and attached to record. jp5 01:24 Abdomen, Flat\E\Upright,PA Chest Returned. EDMS Administered Medications: 01:14 Drug: Magnesium Citrate 300 ml [magnesium citrate oral solution (300 mL)] Route: PO; shaniqua 01:14 Drug: Potassium Chloride 40 mEq [potassium chloride ER 10 mEq tablet,extended release shaniqua (4 tabs)] Route: PO; Order Results: Lab Order: CBC with Diff; SPEC'M 10/17/16 22:30 Test: WHITE BLOOD COUNT; Value: 4.9; Range: 4.0-10.0; Units: K/mm3; Status: F Test: RED BLOOD COUNT; Value: 4.14; Range: 4.00-5.40; Units: M/mm3; Status: F Test: HEMOGLOBIN; Value: 12.0; Range: 12.0-16.0; Units: g/dl; Status: F Test: HEMATOCRIT; Value: 36.4; Range: 36.0-47.0; Units: %; Status: F Test: MEAN CORPUSCULAR VOLUME; Value: 88.0; Range: 80.0-96.0; Units: fl; Status: F Test: MEAN CORPUSCULAR HEMOGLOBIN; Value: 29.0; Range: 27.0-33.0; Units: pg; Status: F Test: MEAN CORPUSCULAR HGB CONC; Value: 33.0; Range: 32.0-36.5; Units: g/dl; Status: F Test: RED CELL DISTRIBUTION WIDTH; Value: 13.2; Range: 11.5-14.5; Units: %; Status: F Test: PLATELET COUNT, AUTOMATED; Value: 241; Range: 150-450; Units: k/mm3; Status: F Test: NEUTROPHILS %; Value: 70.9; Range: 36.0-66.0; Abnormal: Above high normal; Units: %; Status: F Test: LYMPH %; Value: 16.9; Range: 24.0-44.0; Abnormal: Below low normal; Units: %; Status: F Test: MONO %; Value: 6.1; Range: 0.0-5.0; Abnormal: Above high normal; Units: %; Status: F Test: EOS %; Value: 3.3; Range: 0.0-3.0; Abnormal: Above high normal; Units: %; Status: F Test: BASO %; Value: 0.3; Range: 0.0-1.0; Units: %; Status: F Test: LARGE UNSTAINED CELL %; Value: 2.5; Range: 0.0-4.0; Units: %; Status: F Test: NEUTROPHILS #; Value: 3.5; Range: 1.8-7.7; Units: K/mm3; Status: F Test: LYMPH #; Value: 0.8; Range: 1.5-4.5; Abnormal: Below low normal; Units: K/mm3; Status: F Test: MONO #; Value: 0.3; Range: 0.0-0.8; Units: K/mm3; Status: F Test: EOS #; Value: 0.2; Range: 0.0-0.50; Units: K/mm3; Status: F Test: BASO #; Value: 0.0; Range: 0.0-0.2; Units: K/mm3; Status: F Test: LARGE UNSTAINED CELL #; Value: 0.1; Range: 0.0-0.4; Units: K/mm3; Status: F Lab Order: MED Profile; SPEC'M 10/17/16 22:30 Test: GLUCOSE, FASTING; Value: 190; Range: 70-105; Abnormal: Above high normal; Units: MG/DL; Status: F Test: BLOOD UREA NITROGEN; Value: 15; Range: 7-18; Units: MG/DL; Status: F Test: CREATININE FOR GFR; Value: 0.81; Range: 0.55-1.02; Units: MG/DL; Status: F Test: GLOMERULAR FILTRATION RATE; Value: > 60.0; Range: >58; Status: F Test: SODIUM LEVEL; Value: 141; Range: 136-145; Units: MEQ/L; Status: F Test: POTASSIUM SERUM; Value: 3.3; Range: 3.5-5.1; Abnormal: Below low normal; Units: MEQ/L; Status: F Test: CHLORIDE LEVEL; Value: 107; Range: 98-107; Units: MEQ/L; Status: F Test: CARBON DIOXIDE LEVEL; Value: 25; Range: 21-32; Units: MEQ/L; Status: F Test: ANION GAP; Value: 9; Range: 8-16; Units: MEQ/L; Status: F Test: CALCIUM LEVEL; Value: 8.8; Range: 8.5-10.1; Units: MG/DL; Status: F Test Note: ; Units are mL/min/1.73 m2 Chronic Kidney Disease Staging per NKF: Stage I & II GFR >=60 Normal to Mildly Decreased Stage III GFR 30-59 Moderately Decreased Stage IV GFR 15-29 Severely Decreased Stage V GFR <15 Very Little GFR Left ESRD GFR <15 on TEST 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 MANAGER Lab Order: Urinalysis; SPEC'M 10/17/16 22:30 Test: APPEARANCE, URINE; Value: CLOUDY; Range: CLEAR; Abnormal: Above high normal; Status: F Test: COLOR, URINE; Value: TONY; Range: YELLOW; Status: F Test: PH,URINE; Value: 6.0; Range: 5.0-9.0; Units: UNITS; Status: F Test: SPECIFIC GRAVITY URINE AUTO; Value: 1.014; Range: 1.002-1.035; Status: F Test: PROTEIN, URINE AUTO; Value: 2+; Range: NEGATIVE; Abnormal: Above high normal; Units: mg/dL; Status: F Test: GLUCOSE, URINE (UA) AUTO; Value: NEGATIVE; Range: NEGATIVE; Units: mg/dL; Status: F Test: KETONE, URINE AUTO; Value: NEGATIVE; Range: NEGATIVE; Units: mg/dL; Status: F Test: UROBILINOGEN, URINE AUTO; Value: 2.0; Range: 0.0-2.0; Abnormal: Above high normal; Units: mg/dL; Status: F Test: BILIRUBIN, URINE AUTO; Value: NEGATIVE; Range: NEGATIVE; Status: F Test: NITRITE, URINE AUTO; Value: POSITIVE; Range: NEGATIVE; Status: F Test: LEUKOCYTE ESTERASE, URINE AUTO; Value: 3+; Range: NEGATIVE; Abnormal: Above high normal; Status: F Test: BLOOD, URINE BLOOD; Value: 3+; Range: NEGATIVE; Abnormal: Above high normal; Status: F Test: WBC, URINE AUTO; Value: 81; Range: 0-3; Abnormal: Above high normal; Units: /HPF; Status: F Test: RBC, URINE AUTO; Value: TNTC; Range: 0-3; Abnormal: Above high normal; Units: /HPF; Status: F Test: BACTERIA, URINE AUTO; Value: 1+; Range: NEGATIVE; Abnormal: Above high normal; Status: F Test: SQUAMOUS EPITHELIAL CELL UR AU; Value: 4; Range: 0-6; Units: /HPF; Status: F Test: MUCUS, URINE; Value: SMALL; Range: NEGATIVE; Status: F Test: HYALINE CAST, URINE AUTO; Value: 0; Range: 0-1; Units: /LPF; Status: F Test: AMORPHOUS SEDIMENT; Value: SMALL; Range: NEGATIVE; Abnormal: Above high normal; Status: F Lab Order: Urine Culture; SPEC'M 10/17/16 22:30 Test: URINE CULTURE; Value: URINE CULTURE RESULT NO GROWTH; Status: F Radiology Order: Abdomen, Flat\E\Upright,PA Chest Test: Abdomen, Flat\E\Upright,PA Chest REASON FOR EXAMINATION: Abdomen Pain; Clinical: abdominal pain.; ; Technique: Upright view of the chest with supine and upright views of the; abdomen and pelvis.; ; Findings: Frontal upright view of the chest demonstrates no acute; cardiopulmonary process or free air below the diaphragm to suspect; pneumoperitoneum. Supine and upright views of the abdomen and pelvis demonstrate; nonspecific bowel gas pattern without obstruction or perforation. Right ureteral; stent and IUD in satisfactory position. No organomegaly. No abnormal; calcifications. Skeletal structures normal for age.; ; Impression:; Nonspecific bowel gas pattern.; ; ; Signed by; Zeke Kong MD 10/18/2016 12:56 A; Outcome: 00:37 Discharge ordered by Provider. pc 01:16 Discharge Assessment: patient administered narcotics - no. The following High Risk shaniqua Discharge criteria are identified: None. Discharged to home ambulatory, with family. Condition: improved. No special radiology studies were completed. Property :Personal belongings accompany Pt. 01:21 Patient left the ED. shaniqua Signatures: Dispatcher [employer] EDMS Jones Newberry MD MD pc Sovie, Carolyn, RN RN Yash Ring RN RN Ana Wilkinson, LUZ MARINA CARD SELLER ar3 Dorcas Corcoran2 Em Hutchins jp5 Chart Complete MTDD
== END 2016-10-18 01:21 | disposition home or self-care (01) ==
LOC: M ED 21:34
DX: K59.00 Constipation, unspecified (principal); E87.6 Hypokalemia; K21.9 Gastro-esophageal reflux disease without esophagitis; G43.909 Migraine, unspecified, not intractable, without status migrainosus; J30.9 Allergic rhinitis, unspecified; Z85.3 Personal history of malignant neoplasm of breast; Z79.899 Other long term (current) drug therapy; Z88.8 Allergy status to other drugs, medicaments and biological substances

== ENCOUNTER 2016-10-26 00:49 | Emergency (ER) | payer OTHER ==
[~2016-10-26 00:49] MED LIST changes: -TOPI100T PO; +TOPI1TAB31 PO
[2016-10-26] MEDS ORDERED: KETOROLAC 30 MG/ML VIAL (J1885) As Ordered ONE (01:31)
[2016-10-26] MEDS ORDERED: ONDANSETRON 4MG/2ML VIAL (J2405) As Ordered ONE (01:31)
[2016-10-26 01:54] LABS: BASO % 0.7 % (0.0-1.0); EOS # 0.2 K/mm3 (0.0-0.50); EOS % 4.6 % (0.0-3.0); LARGE UNSTAINED CELL # 0.1 K/mm3 (0.0-0.4); LARGE UNSTAINED CELL % 2.9 % (0.0-4.0); MEAN CORPUSCULAR HEMOGLOBIN 29.9 pg (27.0-33.0); MEAN CORPUSCULAR HGB CONC 33.4 g/dl (32.0-36.5); MEAN CORPUSCULAR VOLUME 89.4 fl (80.0-96.0); MONO # 0.3 K/mm3 (0.0-0.8); MONO % 5.5 % (0.0-5.0); NEUTROPHILS # 3.3 K/mm3 (1.8-7.7); NEUTROPHILS % 66.4 % (36.0-66.0); PLATELET COUNT, AUTOMATED 261 k/mm3 (150-450)
--- NOTE | 2016-10-26 02:00 | REPUSA ---
CLINICAL HISTORY: Abdominal pain. TECHNIQUE: Multiple axial, sagittal and coronal CT images were obtained through the abdomen and pelvi s without administration of oral or IV contrast material. COMMENTS: The liver is moderately enlarged with decreased attenuation without mass or defect. There is no intra or extrahepatic biliary ductal dilatation. The spleen is normal. The gallbladder is within normal li mits. The pancreas is of normal contour and attenuation characteristics. There is no evidence of adre nal mass. Bilateral nonobstructing renal stones with the largest measuring 3 mm. Mild right hydroureteronephrosis. Right double-J catheter is in good position. Small sliding-type hernia. There is no evidence for appendicitis. There is no bowel wall thickening. No evidence for small or la rge bowel obstruction. There is no evidence of abdominal ascites or lymphadenopathy. There is no evidence of intrinsic or extrinsic bladder mass. Diffuse thickening of the wall of the bl adder. There is no pelvic ascites or lymphadenopathy. Intrauterine device is seen. Images of the lung bases show no evidence of pleural or parenchymal mass. There are no pleural effusi ons. Small sliding hiatal hernia. The bony structures are free of lytic or blastic lesions. IMPRESSION: Mild right hydroureteronephrosis. Right perinephric fat stranding. Right double-J catheter is in good position. Diffuse thickening of the wall of the bladder. Intrauterine device is in good position. Thank you for your kind referral of this patient.
[2016-10-26 02:19] LABS: ALBUMIN 3.3 GM/DL (3.2-5.2); ALBUMIN/GLOBULIN RATIO 1.03 (1.00-1.93); ALKALINE PHOSPHATASE 93 U/L (45-117); ALT/SGPT 33 U/L (12-78); AMYLASE 30 U/L (25-115); ANION GAP 10 MEQ/L (8-16); AST/SGOT 23 U/L (15-37); BILIRUBIN,DIRECT < 0.1 MG/DL (0.0-0.2); BILIRUBIN,TOTAL 0.3 MG/DL (0.2-1.0); BLOOD UREA NITROGEN 14 MG/DL (7-18); CALCIUM LEVEL 8.5 MG/DL (8.5-10.1); CARBON DIOXIDE LEVEL 26 MEQ/L (21-32); CHLORIDE LEVEL 109 MEQ/L (98-107); CREATININE FOR GFR 0.87 MG/DL (0.55-1.02); GLOMERULAR FILTRATION RATE > 60.0 (>58); GLUCOSE, FASTING 199 MG/DL (70-105); POTASSIUM SERUM 3.8 MEQ/L (3.5-5.1); SODIUM LEVEL 145 MEQ/L (136-145); TOTAL PROTEIN 6.5 GM/DL (6.4-8.2)
[2016-10-26] MEDS ORDERED: cefTRIAXone SOD 1 GM VIAL (J0696) As Ordered ONE (02:21)
[2016-10-26] MEDS ORDERED: HYDROmorphone HCL 1 MG/ML SYRINGE (J1170) As Ordered ONE (02:21)
[2016-10-26] MEDS ORDERED: OXYCODONE/APAP 5MG/325MG(BULK) 1 TAB TAB As Ordered ONE (03:17)
--- NOTE | 2016-10-26 03:58 | EDDOCDS ---
Nurse's Notes [facility] Name: Lindsay Duarte Age: 46 yrs Sex: Female : 1970 Arrival Date: 10/26/2016 Time: 00:49 Bed 11 Private MD: Diagnosis: Urinary tract infection, site not specified-pyelonephritis RIGHT.;Acute cystitis with hematuria;Hydroureter;Hydronephrosis with renal and ureteral calculous obstruction Presentation: 10/26 01:05 Presenting complaint: Patient states: stents place first of year, pain in lower right [facility] abdomen tonight around to back as bad as it was the first time here. Risk factors: the patient reports no vaginal bleeding. Adult Sepsis Screening: The patient does not have new or worsening altered mentation. Patient's respiratory rate is less than 22. Systolic blood pressure is greater than 100. Patient has a qSOFA score of 0- Negative Sepsis Screen. Suicide/Homicide risk assessment- the patient denies having any suicidal and/or homicidal ideations and does not present with any other emotional, behavioral or mental health complaints. 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 Transition of care: patient was not received from another setting of care. 01:05 Acuity: KIKO Level 3 [facility] 01:05 Method Of Arrival: Walkin/Carried/Asstd [facility] Triage Assessment: 01:08 General: Appears uncomfortable, Behavior is cooperative. Pain: Location: back and [facility] abdomen Pain currently is 10 out of 10 on a pain scale. HIV screening NA for this visit Offered previously. GI: Reports nausea. : Reports pain with urination. 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 calcium carbonate 600 mg (1,500 mg) Oral tab 1250 mg daily 2. carboplatin- taxol 175 mg chemo drug 3. Co Q-10 30 mg oral cap daily 4. escitalopram oxalate 20 mg oral tab 1 tab once daily 5. multivitamin Oral tab 1 tab 6. omeprazole 20 mg Oral cpDR 1 cap once daily 7. oxycodone-acetaminophen 5-325 mg/5 mL Oral soln every 4 hours 8. tamoxifen 20 mg oral tab 1 tab once daily 9. tamsulosin 0.4 mg oral cp24 10. topiramate 100 mg oral cp24 1 cap once daily 11. Zyrtec 10 mg Oral tab 1 tab once daily - PMHx: breast cancer; GERD; Migraines; Seasonal Allergies; - PSHx: stent placement; bladder sling; wisdom teeth extraction; llymph gland removal right side; - Social history: Smoking status: Patient states was never smoker of tobacco. No barriers to communication noted. - Family history: Not pertinent. - : The pt / caregiver states he / she is not on anticoagulants. Home medication list is obtained from the patient. - Exposure Risk Screening:: None identified. Screenin:57 Screening information is obtained from the patient. Fall risk: No risks identified. cf2 Assistance ADL's: requires no assistance with activities of daily living. Abuse/DV Screen: The patient / caregiver reports he/she is: not in a situation that causes fear, pain or injury. Nutritional screening: No deficits noted. Advance Directives: Further advance directive information is declined. home support is adequate. Assessment: :57 General: Appears ill, uncomfortable, Behavior is appropriate for age, cooperative. cf2 Pain: Location: abdomen. Neurological: No deficits noted. EENT: No deficits noted. Cardiovascular: No deficits noted. Respiratory: No deficits noted. GI: Abdomen is flat, non- distended Bowel sounds present X 4 quads. Abd is soft Abd is tender to palpation. : No deficits noted. Derm: No deficits noted. Musculoskeletal: No deficits noted. Injury Description: No known injury. Vital Signs: 01:03 BP 163 / 98; Pulse 86; Resp 20; Temp 100.2(TE); Pulse Ox 97% ; Weight 88 kg; Height 5 [facility] ft. 8 in. (172.72 cm); Pain 10/10; 02:54 BP 128 / 79 LA Supine (auto/reg); Pulse 80 MON; Resp 20 S; Temp 97.2(O); Pulse Ox 94% cln on R/A; Pain 0/10; 01:03 Body Mass Index 29.50 (88.00 kg, 172.72 cm) [facility] Vitals: 01:03 Log In Time: October 26, 2016 at 00:44. [facility] ED Course: 00:50 Patient visited by Angeline Louis. [facility] 00:50 Patient moved to Waiting [facility] 01:02 Patient moved to Triage 2 cjh 01:07 Triage Initiated cjh 01:10 Patient moved to 11 cj 01:11 Moises Boswell PA is PHCP. btw 01:11 Grace Cruz MD is Attending Physician. btw 01:11 Patient visited by Moises Boswell PA. btw 01:24 Nisa Kincaid,PATSY is Primary Nurse. cf2 01:24 Patient visited by Nisa Kincaid RN. cf2 01:49 [facility] Payment Agreement was scanned into [employer] and attached to record. hs2 01:57 The patient / caregiver is instructed regarding the plan of care and ED course. Patient cf2 has correct armband on for positive identification. Placed in gown. Bed in low position. Call light in reach. Side rails up X 1. Side rails up X2. Property :Personal belongings accompany Pt. Door closed. Noise minimized. Visitors limited. Lights dimmed. Moved to private room. Verbal reassurance given. Warm blanket given. Pillow given. Head of bed elevated. Diet: Patient is NPO. 01:57 Inserted saline lock: 20 gauge in left antecubital area and blood collected. The cf2 patient tolerated the procedure well. No procedures done that require assistance. 02:00 Patient visited by Nisa Kincaid RN. cf2 02:14 CT ABD & PELVIS: No Contrast Returned. EDMS 02:39 Jason Zuniga is Referral Physician. btw 02:57 Patient visited by Kaylie Alaniz PCA. cln Administered Medications: 01:56 Drug: NS 0.9% 1000 ml [sodium chloride 0.9 % intravenous solution] Route: IV; Rate: cf2 bolus; Site: left antecubital; 02:43 Follow up: Response: No significant change. cf2 01:56 Drug: Ondansetron 4 mg [ondansetron HCl 2 mg/mL intravenous solution (2 mL)] Route: cf2 IVP; Site: left antecubital; 02:43 Follow up: Response: No significant change. cf2 01:57 Drug: ketorolac 30 mg [ketorolac 30 mg/mL (1 mL) injection solution (1 mL)] Route: IVP; cf2 Site: left antecubital; 02:43 Follow up: Response: No significant change. cf2 02:14 Not Given (Patient Refused): Tamsulosin Extended Release 24 hour Capsule 0.4 mg PO once btw 02:15 Drug: cefTRIAXone 2 grams [ceftriaxone 1 gram solution for injection] Route: IVPB; cf2 Infused Over: 30 mins; Site: left antecubital; :43 Follow up: Response: Pain is decreased cf2 02:15 Drug: Dilaudid - HYDROmorphone 0.5 mg [hydromorphone 1 mg/mL injection syringe (0.5 cf2 mL)] Route: IVP; Site: left antecubital; :43 Follow up: Response: Pain is decreased cf2 03:20 Drug: oxyCODONE-acetaminophen 4 pack 1 packets [oxycodone-acetaminophen 5 mg-325 mg cf2 tablet (1 tabs)] {Co-Signature: [email or web address] (Anisa Mahmood RN).} Route: PO; Order Results: Lab Order: Amylase; SPEC'M 10/26/16 01:37 Test: AMYLASE; Value: 30; Range: 25-115; Units: U/L; Status: F Lab Order: Basic Metabolic Profile; SPEC'M 10/26/16 01:37 Test: GLUCOSE, FASTING; Value: 199; Range: 70-105; Abnormal: Above high normal; Units: MG/DL; Status: F Test: BLOOD UREA NITROGEN; Value: 14; Range: 7-18; Units: MG/DL; Status: F Test: CREATININE FOR GFR; Value: 0.87; Range: 0.55-1.02; Units: MG/DL; Status: F Test: GLOMERULAR FILTRATION RATE; Value: > 60.0; Range: >58; Status: F Test: SODIUM LEVEL; Value: 145; Range: 136-145; Units: MEQ/L; Status: F Test: POTASSIUM SERUM; Value: 3.8; Range: 3.5-5.1; Units: MEQ/L; Status: F Test: CHLORIDE LEVEL; Value: 109; Range: 98-107; Abnormal: Above high normal; Units: MEQ/L; Status: F Test: CARBON DIOXIDE LEVEL; Value: 26; Range: 21-32; Units: MEQ/L; Status: F Test: ANION GAP; Value: 10; Range: 8-16; Units: MEQ/L; Status: F Test: CALCIUM LEVEL; Value: 8.5; Range: 8.5-10.1; Units: MG/DL; Status: F Test Note: ; Units are mL/min/1.73 m2 Chronic Kidney Disease Staging per NKF: Stage I & II GFR >=60 Normal to Mildly Decreased Stage III GFR 30-59 Moderately Decreased Stage IV GFR 15-29 Severely Decreased Stage V GFR <15 Very Little GFR Left ESRD GFR <15 on STILL CLEANER Lab Order: CBC with Diff; SPEC'M 10/26/16 01:37 Test: WHITE BLOOD COUNT; Value: 5.0; Range: 4.0-10.0; Units: K/mm3; Status: F Test: RED BLOOD COUNT; Value: 3.98; Range: 4.00-5.40; Abnormal: Below low normal; Units: M/mm3; Status: F Test: HEMOGLOBIN; Value: 11.9; Range: 12.0-16.0; Abnormal: Below low normal; Units: g/dl; Status: F Test: HEMATOCRIT; Value: 35.6; Range: 36.0-47.0; Abnormal: Below low normal; Units: %; Status: F Test: MEAN CORPUSCULAR VOLUME; Value: 89.4; Range: 80.0-96.0; Units: fl; Status: F Test: MEAN CORPUSCULAR HEMOGLOBIN; Value: 29.9; Range: 27.0-33.0; Units: pg; Status: F Test: MEAN CORPUSCULAR HGB CONC; Value: 33.4; Range: 32.0-36.5; Units: g/dl; Status: F Test: RED CELL DISTRIBUTION WIDTH; Value: 13.0; Range: 11.5-14.5; Units: %; Status: F Test: PLATELET COUNT, AUTOMATED; Value: 261; Range: 150-450; Units: k/mm3; Status: F Test: NEUTROPHILS %; Value: 66.4; Range: 36.0-66.0; Abnormal: Above high normal; Units: %; Status: F Test: LYMPH %; Value: 20.0; Range: 24.0-44.0; Abnormal: Below low normal; Units: %; Status: F Test: MONO %; Value: 5.5; Range: 0.0-5.0; Abnormal: Above high normal; Units: %; Status: F Test: EOS %; Value: 4.6; Range: 0.0-3.0; Abnormal: Above high normal; Units: %; Status: F Test: BASO %; Value: 0.7; Range: 0.0-1.0; Units: %; Status: F Test: LARGE UNSTAINED CELL %; Value: 2.9; Range: 0.0-4.0; Units: %; Status: F Test: NEUTROPHILS #; Value: 3.3; Range: 1.8-7.7; Units: K/mm3; Status: F Test: LYMPH #; Value: 1.0; Range: 1.5-4.5; Abnormal: Below low normal; Units: K/mm3; Status: F Test: MONO #; Value: 0.3; Range: 0.0-0.8; Units: K/mm3; Status: F Test: EOS #; Value: 0.2; Range: 0.0-0.50; Units: K/mm3; Status: F Test: BASO #; Value: 0.0; Range: 0.0-0.2; Units: K/mm3; Status: F Test: LARGE UNSTAINED CELL #; Value: 0.1; Range: 0.0-0.4; Units: K/mm3; Status: F Lab Order: Lipase; SPEC' 10/26/16 01:37 Test: LIPASE; Value: 166; Range: 73-393; Units: U/L; Status: F Lab Order: Liver Profile; SPEC' 10/26/16 01:37 Test: AST/SGOT; Value: 23; Range: 15-37; Units: U/L; Status: F Test: ALT/SGPT; Value: 33; Range: 12-78; Units: U/L; Status: F Test: ALKALINE PHOSPHATASE; Value: 93; Range: 45-117; Units: U/L; Status: F Test: BILIRUBIN,TOTAL; Value: 0.3; Range: 0.2-1.0; Units: MG/DL; Status: F Test: BILIRUBIN,DIRECT; Value: < 0.1; Range: 0.0-0.2; Units: MG/DL; Status: F Test: TOTAL PROTEIN; Value: 6.5; Range: 6.4-8.2; Units: GM/DL; Status: F Test: ALBUMIN; Value: 3.3; Range: 3.2-5.2; Units: GM/DL; Status: F Test: ALBUMIN/GLOBULIN RATIO; Value: 1.03; Range: 1.00-1.93; Status: F Lab Order: Urinalysis; SPEC'M 10/26/16 01:37 Test: APPEARANCE, URINE; Value: HAZY; Range: CLEAR; Status: F Test: COLOR, URINE; Value: YELLOW; Range: YELLOW; Status: F Test: PH,URINE; Value: 7.0; Range: 5.0-9.0; Units: UNITS; Status: F Test: SPECIFIC GRAVITY URINE AUTO; Value: 1.012; Range: 1.002-1.035; Status: F Test: PROTEIN, URINE AUTO; Value: 2+; Range: NEGATIVE; Abnormal: Above high normal; Units: mg/dL; Status: F Test: GLUCOSE, URINE (UA) AUTO; Value: 1+; Range: NEGATIVE; Abnormal: Above high normal; Units: mg/dL; Status: F Test: KETONE, URINE AUTO; Value: NEGATIVE; Range: NEGATIVE; Units: mg/dL; Status: F Test: UROBILINOGEN, URINE AUTO; Value: 0.2; Range: 0.0-2.0; Units: mg/dL; Status: F Test: BILIRUBIN, URINE AUTO; Value: NEGATIVE; Range: NEGATIVE; Status: F Test: NITRITE, URINE AUTO; Value: NEGATIVE; Range: NEGATIVE; Status: F Test: LEUKOCYTE ESTERASE, URINE AUTO; Value: 1+; Range: NEGATIVE; Abnormal: Above high normal; Status: F Test: BLOOD, URINE BLOOD; Value: 2+; Range: NEGATIVE; Abnormal: Above high normal; Status: F Test: WBC, URINE AUTO; Value: 8; Range: 0-3; Abnormal: Above high normal; Units: /HPF; Status: F Test: RBC, URINE AUTO; Value: 95; Range: 0-3; Abnormal: Above high normal; Units: /HPF; Status: F Test: BACTERIA, URINE AUTO; Value: 1+; Range: NEGATIVE; Abnormal: Above high normal; Status: F Test: SQUAMOUS EPITHELIAL CELL UR AU; Value: 0; Range: 0-6; Units: /HPF; Status: F Test: HYALINE CAST, URINE AUTO; Value: 0; Range: 0-1; Units: /LPF; Status: F Radiology Order: CT ABD & PELVIS: No Contrast Test: CT ABD & PELVIS: No Contrast REASON FOR EXAMINATION: Right flank pain with stent.;Appendicitis/RLQ Pain; ; CLINICAL HISTORY: Abdominal pain.; TECHNIQUE: Multiple axial, sagittal and coronal CT images were obtained through the abdomen and pelvi; s without administration of oral or IV contrast material.; COMMENTS:; The liver is moderately enlarged with decreased attenuation without mass or defect. There is no intra; or extrahepatic biliary ductal dilatation. The spleen is normal. The gallbladder is within normal li; mits. The pancreas is of normal contour and attenuation characteristics. There is no evidence of adre; nal mass.; Bilateral nonobstructing renal stones with the largest measuring 3 mm.; Mild right hydroureteronephrosis. Right double-J catheter is in good position.; Small sliding-type hernia.; There is no evidence for appendicitis. There is no bowel wall thickening. No evidence for small or la; rge bowel obstruction. There is no evidence of abdominal ascites or lymphadenopathy.; There is no evidence of intrinsic or extrinsic bladder mass. Diffuse thickening of the wall of the bl; adder. There is no pelvic ascites or lymphadenopathy. Intrauterine device is seen.; Images of the lung bases show no evidence of pleural or parenchymal mass. There are no pleural effusi; ons. Small sliding hiatal hernia.; The bony structures are free of lytic or blastic lesions.; IMPRESSION:; Mild right hydroureteronephrosis.; Right perinephric fat stranding.; Right double-J catheter is in good position.; Diffuse thickening of the wall of the bladder.; Intrauterine device is in good position.; Thank you for your kind referral of this patient.; ; Outcome: 01:57 CT Study completed. cf2 02:39 Discharge ordered by Provider. btw 03:56 Discharge Assessment: Patient awake, alert and oriented x 3. No cognitive and/or cf2 functional deficits noted. Patient verbalized understanding of disposition instructions. Patient patient administered narcotics - yes. Pt provided with safe discharge. The following High Risk Discharge criteria are identified: None. Discharged to home. Condition: good Condition: stable Condition: improved. 03:57 Patient left the ED. cf2 Signatures: Dispatcher [employer] EDMS Moises Boswell PA PA btw Hafner, Jane,RN RN Angeline Mark Hillary, Reg Reg hs2 Kaylie Alaniz, PHARMACEUTICAL SALES SPECIALIST PHARMACEUTICAL SALES SPECIALIST Nisa Peterson RN RN cf2 Anisa Mahmood RN [email or web address] MTDD
--- NOTE | 2016-10-26 03:58 | EDDOCDS ---
Physician Documentation [facility] Name: Lindsay Duarte Age: 46 yrs Sex: Female : 1970 Arrival Date: 10/26/2016 Time: 00:49 Bed 11 Private MD: Disposition: 10/26/16 02:39 Discharged to Home/Self Care. Impression: Urinary tract infection, site not specified - pyelonephritis RIGHT., Acute cystitis with hematuria, Hydroureter, Hydronephrosis with renal and ureteral calculous obstruction. - Condition is Stable. - Discharge Instructions: Urinary Tract Infection, [id number]-[id number], Hydronephrosis, Antibiotic Medication. - Prescriptions for Cipro 500 mg Oral Tablet - take 1 tablet by ORAL route every 12 hours; 14 tablet. - Medication Reconciliation, Local Pharmacy Hours form. - Follow up: Jason Zuniga; When: 1 - 2 days; Reason: Further diagnostic work-up, Recheck today's complaints, Continuance of care. Follow up: Private Physician; When: Call to arrange an appointment; Reason: Further diagnostic work-up, Evaluation of elevated blood sugar and glucose in the urine.. - Problem is new. - Symptoms are unchanged. Historical: - Allergies: Reglan (itchy); - Home Meds: 1. calcium carbonate 600 mg (1,500 mg) Oral tab 1250 mg daily 2. carboplatin- taxol 175 mg chemo drug 3. Co Q-10 30 mg oral cap daily 4. escitalopram oxalate 20 mg oral tab 1 tab once daily 5. multivitamin Oral tab 1 tab 6. omeprazole 20 mg Oral cpDR 1 cap once daily 7. oxycodone-acetaminophen 5-325 mg/5 mL Oral soln every 4 hours 8. tamoxifen 20 mg oral tab 1 tab once daily 9. tamsulosin 0.4 mg oral cp24 10. topiramate 100 mg oral cp24 1 cap once daily 11. Zyrtec 10 mg Oral tab 1 tab once daily - PMHx: breast cancer; GERD; Migraines; Seasonal Allergies; - PSHx: stent placement; bladder sling; wisdom teeth extraction; llymph gland removal right side; - Social history: Smoking status: Patient states was never smoker of tobacco. No barriers to communication noted. - Family history: Not pertinent. - : The pt / caregiver states he / she is not on anticoagulants. Home medication list is obtained from the patient. - Exposure Risk Screening:: None identified. 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 8 in. (172.72 cm); Pain 10/10; 02:54 BP 128 / 79 LA Supine (auto/reg); Pulse 80 MON; Resp 20 S; Temp 97.2(O); Pulse Ox 94% cln on R/A; Pain 0/10; 01:03 Body Mass Index 29.50 (88.00 kg, 172.72 cm) [facility] MDM: 01:18 NS 0.9% 1000 ml IV at bolus once ordered. btw 01:18 Ondansetron 4 mg IVP once ordered. btw 01:18 ketorolac 30 mg IVP once ordered. btw 01:18 IV Saline Lock ordered. btw 01:18 Undress patient appropriately for examination ordered. btw 01:19 Amylase Ordered. EDMS 01:19 Basic Metabolic Profile Ordered. EDMS 01:19 CBC with Diff Ordered. EDMS 01:19 Lipase Ordered. EDMS 01:19 Liver Profile Ordered. EDMS 01:19 Urinalysis Ordered. EDMS 01:19 Urine Culture Ordered. EDMS 01:19 CT ABD & PELVIS: No Contrast Ordered. EDMS 01:19 NOTHING BY MOUTH+DIET ordered. EDMS 01:48 Financial registration complete. hs2 01:49 [facility] Payment Agreement was scanned into [employer] and attached to record. hs2 02:05 CBC with Diff Reviewed. btw 02:05 Urinalysis Reviewed. btw 02:10 cefTRIAXone 2 grams IVPB once over 30 mins; dilute in 50mL of NS or D5W ordered. btw 02:10 Tamsulosin Extended Release 24 hour Capsule 0.4 mg PO once ordered. btw 02:11 Dilaudid - HYDROmorphone 0.5 mg IVP once ordered. btw 02:17 CT ABD & PELVIS: No Contrast Reviewed. btw 02:24 Basic Metabolic Profile Reviewed. btw 02:24 Amylase Reviewed. btw 02:24 Lipase Reviewed. btw 02:24 Liver Profile Reviewed. btw 03:17 oxyCODONE-acetaminophen 4 pack 5 mg-325 mg 1 packets PO once; Dispense with pt, take as fg per instruction on package ordered. Administered Medications: 01:56 Drug: NS 0.9% 1000 ml [sodium chloride 0.9 % intravenous solution] Route: IV; Rate: cf2 bolus; Site: left antecubital; 02:43 Follow up: Response: No significant change. cf2 01:56 Drug: Ondansetron 4 mg [ondansetron HCl 2 mg/mL intravenous solution (2 mL)] Route: cf2 IVP; Site: left antecubital; 02:43 Follow up: Response: No significant change. cf2 01:57 Drug: ketorolac 30 mg [ketorolac 30 mg/mL (1 mL) injection solution (1 mL)] Route: IVP; cf2 Site: left antecubital; 02:43 Follow up: Response: No significant change. cf2 02:14 Not Given (Patient Refused): Tamsulosin Extended Release 24 hour Capsule 0.4 mg PO once btw 02:15 Drug: cefTRIAXone 2 grams [ceftriaxone 1 gram solution for injection] Route: IVPB; cf2 Infused Over: 30 mins; Site: left antecubital; 02:43 Follow up: Response: Pain is decreased cf2 02:15 Drug: Dilaudid - HYDROmorphone 0.5 mg [hydromorphone 1 mg/mL injection syringe (0.5 cf2 mL)] Route: IVP; Site: left antecubital; 02:43 Follow up: Response: Pain is decreased cf2 03:20 Drug: oxyCODONE-acetaminophen 4 pack 1 packets [oxycodone-acetaminophen 5 mg-325 mg cf2 tablet (1 tabs)] {Co-Signature: [email or web address] (Anisa Mahmood RN).} Route: PO; Signatures: Dispatcher [employer] Moises Murillo PA PA btw Kasandra FerrellRN RN [facility] Grace Cruz MD MD fg Stanton, Hillary, Reg Reg hs2 Nisa Kincaid RN RN cf2 Anisa Mahmood RN [email or web address] The chart was reviewed and I authenticate all verbal orders and agree with the evaluation and treatment provided.Attachments: 01:49 [facility] Payment Agreement hs2 MTDD
--- NOTE | 2016-10-28 04:58 | EDDOCDS ---
Physician Documentation [facility] Name: Lindsay Duarte Age: 46 yrs Sex: Female : 1970 Arrival Date: 10/26/2016 Time: 00:49 Bed 11 Private MD: Disposition: 10/26/16 02:39 Discharged to Home/Self Care. Impression: Urinary tract infection, site not specified - pyelonephritis RIGHT., Acute cystitis with hematuria, Hydroureter, Hydronephrosis with renal and ureteral calculous obstruction. - Condition is Stable. - Discharge Instructions: Urinary Tract Infection, [id number], Hydronephrosis, Antibiotic Medication. - Prescriptions for Cipro 500 mg Oral Tablet - take 1 tablet by ORAL route every 12 hours; 14 tablet. - Medication Reconciliation, Local Pharmacy Hours form. - Follow up: Jason Zuniga; When: 1 - 2 days; Reason: Further diagnostic work-up, Recheck today's complaints, Continuance of care. Follow up: Private Physician; When: Call to arrange an appointment; Reason: Further diagnostic work-up, Evaluation of elevated blood sugar and glucose in the urine.. - Problem is new. - Symptoms are unchanged. Historical: - Allergies: Reglan (itchy); - Home Meds: 1. calcium carbonate 600 mg (1,500 mg) Oral tab 1250 mg daily 2. carboplatin- taxol 175 mg chemo drug 3. Co Q-10 30 mg oral cap daily 4. escitalopram oxalate 20 mg oral tab 1 tab once daily 5. multivitamin Oral tab 1 tab 6. omeprazole 20 mg Oral cpDR 1 cap once daily 7. oxycodone-acetaminophen 5-325 mg/5 mL Oral soln every 4 hours 8. tamoxifen 20 mg oral tab 1 tab once daily 9. tamsulosin 0.4 mg oral cp24 10. topiramate 100 mg oral cp24 1 cap once daily 11. Zyrtec 10 mg Oral tab 1 tab once daily - PMHx: breast cancer; GERD; Migraines; Seasonal Allergies; - PSHx: stent placement; bladder sling; wisdom teeth extraction; llymph gland removal right side; - Social history: Smoking status: Patient states was never smoker of tobacco. No barriers to communication noted. - Family history: Not pertinent. - : The pt / caregiver states he / she is not on anticoagulants. Home medication list is obtained from the patient. - Exposure Risk Screening:: None identified. RN PHYSICIAN OFFICE: 10/26 01:03 LMP N/A - control method [facility] Vital Signs: 01:03 BP 163 / 98; Pulse 86; Resp 20; Temp 100.2(TE); Pulse Ox 97% ; Weight 88 kg / 194.01 [facility] lbs; Height 5 ft. 8 in. (172.72 cm); Pain 10/10; 02:54 BP 128 / 79 LA Supine (auto/reg); Pulse 80 MON; Resp 20 S; Temp 97.2(O); Pulse Ox 94% cln on R/A; Pain 0/10; 01:03 Body Mass Index 29.50 (88.00 kg, 172.72 cm) [facility] MDM: 01:18 NS 0.9% 1000 ml IV at bolus once ordered. btw 01:18 Ondansetron 4 mg IVP once ordered. btw 01:18 ketorolac 30 mg IVP once ordered. btw 01:18 IV Saline Lock ordered. btw 01:18 Undress patient appropriately for examination ordered. btw 01:19 Amylase Ordered. EDMS 01:19 Basic Metabolic Profile Ordered. EDMS 01:19 CBC with Diff Ordered. EDMS 01:19 Lipase Ordered. EDMS 01:19 Liver Profile Ordered. EDMS 01:19 Urinalysis Ordered. EDMS 01:19 Urine Culture Ordered. EDMS 01:19 CT ABD & PELVIS: No Contrast Ordered. EDMS 01:19 NOTHING BY MOUTH+DIET ordered. EDMS 01:48 Financial registration complete. hs2 01:49 [facility] Payment Agreement was scanned into [employer] and attached to record. hs2 02:05 CBC with Diff Reviewed. btw 02:05 Urinalysis Reviewed. btw 02:10 cefTRIAXone 2 grams IVPB once over 30 mins; dilute in 50mL of NS or D5W ordered. btw 02:10 Tamsulosin Extended Release 24 hour Capsule 0.4 mg PO once ordered. btw 02:11 Dilaudid - HYDROmorphone 0.5 mg IVP once ordered. btw 02:17 CT ABD & PELVIS: No Contrast Reviewed. btw 02:24 Basic Metabolic Profile Reviewed. btw 02:24 Amylase Reviewed. btw 02:24 Lipase Reviewed. btw 02:24 Liver Profile Reviewed. btw 03:17 oxyCODONE-acetaminophen 4 pack 5 mg-325 mg 1 packets PO once; Dispense with pt, take as fg per instruction on package ordered. 14:03 T-Sheet-- Draft Copy was scanned into [employer] and attached to record. gb 14:03 Radiology Report was scanned into [employer] and attached to record. gb Administered Medications: 01:56 Drug: NS 0.9% 1000 ml [sodium chloride 0.9 % intravenous solution] Route: IV; Rate: cf2 bolus; Site: left antecubital; 02:43 Follow up: Response: No significant change. cf2 01:56 Drug: Ondansetron 4 mg [ondansetron HCl 2 mg/mL intravenous solution (2 mL)] Route: cf2 IVP; Site: left antecubital; :43 Follow up: Response: No significant change. cf2 01:57 Drug: ketorolac 30 mg [ketorolac 30 mg/mL (1 mL) injection solution (1 mL)] Route: IVP; cf2 Site: left antecubital; 02:43 Follow up: Response: No significant change. cf2 02:14 Not Given (Patient Refused): Tamsulosin Extended Release 24 hour Capsule 0.4 mg PO once btw 02:15 Drug: cefTRIAXone 2 grams [ceftriaxone 1 gram solution for injection] Route: IVPB; cf2 Infused Over: 30 mins; Site: left antecubital; 02:43 Follow up: Response: Pain is decreased cf2 02:15 Drug: Dilaudid - HYDROmorphone 0.5 mg [hydromorphone 1 mg/mL injection syringe (0.5 cf2 mL)] Route: IVP; Site: left antecubital; 02:43 Follow up: Response: Pain is decreased cf2 03:20 Drug: oxyCODONE-acetaminophen 4 pack 1 packets [oxycodone-acetaminophen 5 mg-325 mg cf2 tablet (1 tabs)] {Co-Signature: [email or web address] (Anisa Mahmood RN).} Route: PO; Signatures: Dispatcher [employer] EDCammie Franco, Reg Reg gb Moises Boswell PA PA btw Kasandra Ferrell RN RN cj Grace Cruz MD MD fg Stanton, Hillary, Reg Reg hs2 Nisa Kincaid,RN RN cf2 Anisa Mahmood RN [email or web address] The chart was reviewed and I authenticate all verbal orders and agree with the evaluation and treatment provided.Attachments: 01:49 [facility] Payment Agreement hs2 14:03 T-Sheet-- Draft Copy gb Chart Complete MTDD
--- NOTE | 2016-10-28 04:58 | EDDOCDS ---
Physician Documentation [facility] Name: Lindsay Duarte Age: 46 yrs Sex: Female : 1970 Arrival Date: 10/26/2016 Time: 00:49 Bed 11 Private MD: Disposition: 10/26/16 02:39 Discharged to Home/Self Care. Impression: Urinary tract infection, site not specified - pyelonephritis RIGHT., Acute cystitis with hematuria, Hydroureter, Hydronephrosis with renal and ureteral calculous obstruction. - Condition is Stable. - Discharge Instructions: Urinary Tract Infection, [id number], Hydronephrosis, Antibiotic Medication. - Prescriptions for Cipro 500 mg Oral Tablet - take 1 tablet by ORAL route every 12 hours; 14 tablet. - Medication Reconciliation, Local Pharmacy Hours form. - Follow up: Jason Zuniga; When: 1 - 2 days; Reason: Further diagnostic work-up, Recheck today's complaints, Continuance of care. Follow up: Private Physician; When: Call to arrange an appointment; Reason: Further diagnostic work-up, Evaluation of elevated blood sugar and glucose in the urine.. - Problem is new. - Symptoms are unchanged. Historical: - Allergies: Reglan (itchy); - Home Meds: 1. calcium carbonate 600 mg (1,500 mg) Oral tab 1250 mg daily 2. carboplatin- taxol 175 mg chemo drug 3. Co Q-10 30 mg oral cap daily 4. escitalopram oxalate 20 mg oral tab 1 tab once daily 5. multivitamin Oral tab 1 tab 6. omeprazole 20 mg Oral cpDR 1 cap once daily 7. oxycodone-acetaminophen 5-325 mg/5 mL Oral soln every 4 hours 8. tamoxifen 20 mg oral tab 1 tab once daily 9. tamsulosin 0.4 mg oral cp24 10. topiramate 100 mg oral cp24 1 cap once daily 11. Zyrtec 10 mg Oral tab 1 tab once daily - PMHx: breast cancer; GERD; Migraines; Seasonal Allergies; - PSHx: stent placement; bladder sling; wisdom teeth extraction; llymph gland removal right side; - Social history: Smoking status: Patient states was never smoker of tobacco. No barriers to communication noted. - Family history: Not pertinent. - : The pt / caregiver states he / she is not on anticoagulants. Home medication list is obtained from the patient. - Exposure Risk Screening:: None identified. TUBE BUFFER: 10/26 01:03 LMP N/A - control method [facility] Vital Signs: 01:03 BP 163 / 98; Pulse 86; Resp 20; Temp 100.2(TE); Pulse Ox 97% ; Weight 88 kg / 194.01 [facility] lbs; Height 5 ft. 8 in. (172.72 cm); Pain 10/10; 02:54 BP 128 / 79 LA Supine (auto/reg); Pulse 80 MON; Resp 20 S; Temp 97.2(O); Pulse Ox 94% cln on R/A; Pain 0/10; 01:03 Body Mass Index 29.50 (88.00 kg, 172.72 cm) [facility] MDM: 01:18 NS 0.9% 1000 ml IV at bolus once ordered. btw 01:18 Ondansetron 4 mg IVP once ordered. btw 01:18 ketorolac 30 mg IVP once ordered. btw 01:18 IV Saline Lock ordered. btw 01:18 Undress patient appropriately for examination ordered. btw 01:19 Amylase Ordered. EDMS 01:19 Basic Metabolic Profile Ordered. EDMS 01:19 CBC with Diff Ordered. EDMS 01:19 Lipase Ordered. EDMS 01:19 Liver Profile Ordered. EDMS 01:19 Urinalysis Ordered. EDMS 01:19 Urine Culture Ordered. EDMS 01:19 CT ABD & PELVIS: No Contrast Ordered. EDMS 01:19 NOTHING BY MOUTH+DIET ordered. EDMS 01:48 Financial registration complete. hs2 01:49 [facility] Payment Agreement was scanned into [employer] and attached to record. hs2 02:05 CBC with Diff Reviewed. btw 02:05 Urinalysis Reviewed. btw 02:10 cefTRIAXone 2 grams IVPB once over 30 mins; dilute in 50mL of NS or D5W ordered. btw 02:10 Tamsulosin Extended Release 24 hour Capsule 0.4 mg PO once ordered. btw 02:11 Dilaudid - HYDROmorphone 0.5 mg IVP once ordered. btw 02:17 CT ABD & PELVIS: No Contrast Reviewed. btw 02:24 Basic Metabolic Profile Reviewed. btw 02:24 Amylase Reviewed. btw 02:24 Lipase Reviewed. btw 02:24 Liver Profile Reviewed. btw 03:17 oxyCODONE-acetaminophen 4 pack 5 mg-325 mg 1 packets PO once; Dispense with pt, take as fg per instruction on package ordered. 14:03 T-Sheet-- Draft Copy was scanned into [employer] and attached to record. gb 14:03 Radiology Report was scanned into [employer] and attached to record. gb Administered Medications: 01:56 Drug: NS 0.9% 1000 ml [sodium chloride 0.9 % intravenous solution] Route: IV; Rate: cf2 bolus; Site: left antecubital; 02:43 Follow up: Response: No significant change. cf2 01:56 Drug: Ondansetron 4 mg [ondansetron HCl 2 mg/mL intravenous solution (2 mL)] Route: cf2 IVP; Site: left antecubital; :43 Follow up: Response: No significant change. cf2 01:57 Drug: ketorolac 30 mg [ketorolac 30 mg/mL (1 mL) injection solution (1 mL)] Route: IVP; cf2 Site: left antecubital; 02:43 Follow up: Response: No significant change. cf2 02:14 Not Given (Patient Refused): Tamsulosin Extended Release 24 hour Capsule 0.4 mg PO once btw 02:15 Drug: cefTRIAXone 2 grams [ceftriaxone 1 gram solution for injection] Route: IVPB; cf2 Infused Over: 30 mins; Site: left antecubital; 02:43 Follow up: Response: Pain is decreased cf2 02:15 Drug: Dilaudid - HYDROmorphone 0.5 mg [hydromorphone 1 mg/mL injection syringe (0.5 cf2 mL)] Route: IVP; Site: left antecubital; 02:43 Follow up: Response: Pain is decreased cf2 03:20 Drug: oxyCODONE-acetaminophen 4 pack 1 packets [oxycodone-acetaminophen 5 mg-325 mg cf2 tablet (1 tabs)] {Co-Signature: [email or web address] (Anisa Mahmood RN).} Route: PO; Signatures: Dispatcher [employer] EDCammie Franco, Reg Reg gb Moises Boswell PA PA btw Kasandra Ferrell RN RN cj Grace Cruz MD MD fg Stanton, Hillary, Reg Reg hs2 Nisa Kincaid,RN RN cf2 Anisa Mahmood RN [email or web address] The chart was reviewed and I authenticate all verbal orders and agree with the evaluation and treatment provided.Attachments: 01:49 [facility] Payment Agreement hs2 14:03 T-Sheet-- Draft Copy gb Chart Complete MTDD
--- NOTE | 2016-10-28 04:58 | EDDOCDS ---
Nurse's Notes [facility] Name: Lindsay Duarte Age: 46 yrs Sex: Female : 1970 Arrival Date: 10/26/2016 Time: 00:49 Bed 11 Private MD: Diagnosis: Urinary tract infection, site not specified-pyelonephritis RIGHT.;Acute cystitis with hematuria;Hydroureter;Hydronephrosis with renal and ureteral calculous obstruction Presentation: 10/26 01:05 Presenting complaint: Patient states: stents place first of year, pain in lower right [facility] abdomen tonight around to back as bad as it was the first time here. Risk factors: the patient reports no vaginal bleeding. Adult Sepsis Screening: The patient does not have new or worsening altered mentation. Patient's respiratory rate is less than 22. Systolic blood pressure is greater than 100. Patient has a qSOFA score of 0- Negative Sepsis Screen. Suicide/Homicide risk assessment- the patient denies having any suicidal and/or homicidal ideations and does not present with any other emotional, behavioral or mental health complaints. Status: Patient is not a employment services director or dependent. Transition of care: patient was not received from another setting of care. 01:05 Acuity: KIKO Level 3 [facility] 01:05 Method Of Arrival: Walkin/Carried/Asstd [facility] Triage Assessment: 01:08 General: Appears uncomfortable, Behavior is cooperative. Pain: Location: back and [facility] abdomen Pain currently is 10 out of 10 on a pain scale. HIV screening NA for this visit Offered previously. GI: Reports nausea. : Reports pain with urination. 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 calcium carbonate 600 mg (1,500 mg) Oral tab 1250 mg daily 2. carboplatin- taxol 175 mg chemo drug 3. Co Q-10 30 mg oral cap daily 4. escitalopram oxalate 20 mg oral tab 1 tab once daily 5. multivitamin Oral tab 1 tab 6. omeprazole 20 mg Oral cpDR 1 cap once daily 7. oxycodone-acetaminophen 5-325 mg/5 mL Oral soln every 4 hours 8. tamoxifen 20 mg oral tab 1 tab once daily 9. tamsulosin 0.4 mg oral cp24 10. topiramate 100 mg oral cp24 1 cap once daily 11. Zyrtec 10 mg Oral tab 1 tab once daily - PMHx: breast cancer; GERD; Migraines; Seasonal Allergies; - PSHx: stent placement; bladder sling; wisdom teeth extraction; llymph gland removal right side; - Social history: Smoking status: Patient states was never smoker of tobacco. No barriers to communication noted. - Family history: Not pertinent. - : The pt / caregiver states he / she is not on anticoagulants. Home medication list is obtained from the patient. - Exposure Risk Screening:: None identified. Screenin:57 Screening information is obtained from the patient. Fall risk: No risks identified. cf2 Assistance ADL's: requires no assistance with activities of daily living. Abuse/DV Screen: The patient / caregiver reports he/she is: not in a situation that causes fear, pain or injury. Nutritional screening: No deficits noted. Advance Directives: Further advance directive information is declined. home support is adequate. Assessment: :57 General: Appears ill, uncomfortable, Behavior is appropriate for age, cooperative. cf2 Pain: Location: abdomen. Neurological: No deficits noted. EENT: No deficits noted. Cardiovascular: No deficits noted. Respiratory: No deficits noted. GI: Abdomen is flat, non- distended Bowel sounds present X 4 quads. Abd is soft Abd is tender to palpation. : No deficits noted. Derm: No deficits noted. Musculoskeletal: No deficits noted. Injury Description: No known injury. Vital Signs: 01:03 BP 163 / 98; Pulse 86; Resp 20; Temp 100.2(TE); Pulse Ox 97% ; Weight 88 kg; Height 5 [facility] ft. 8 in. (172.72 cm); Pain 10/10; 02:54 BP 128 / 79 LA Supine (auto/reg); Pulse 80 MON; Resp 20 S; Temp 97.2(O); Pulse Ox 94% cln on R/A; Pain 0/10; 01:03 Body Mass Index 29.50 (88.00 kg, 172.72 cm) [facility] Vitals: 01:03 Log In Time: October 26, 2016 at 00:44. [facility] ED Course: 00:50 Patient visited by Angeline Louis. [facility] 00:50 Patient moved to Waiting [facility] 01:02 Patient moved to Triage 2 cjh 01:07 Triage Initiated cjh 01:10 Patient moved to 11 cj 01:11 Moises Boswell PA is PHCP. btw 01:11 Grace Cruz MD is Attending Physician. btw 01:11 Patient visited by Moises Boswell PA. btw 01:24 Nisa Kincaid,PATSY is Primary Nurse. cf2 01:24 Patient visited by Nisa Kincaid RN. cf2 01:49 [facility] Payment Agreement was scanned into [employer] and attached to record. hs2 01:57 The patient / caregiver is instructed regarding the plan of care and ED course. Patient cf2 has correct armband on for positive identification. Placed in gown. Bed in low position. Call light in reach. Side rails up X 1. Side rails up X2. Property :Personal belongings accompany Pt. Door closed. Noise minimized. Visitors limited. Lights dimmed. Moved to private room. Verbal reassurance given. Warm blanket given. Pillow given. Head of bed elevated. Diet: Patient is NPO. 01:57 Inserted saline lock: 20 gauge in left antecubital area and blood collected. The cf2 patient tolerated the procedure well. No procedures done that require assistance. 02:00 Patient visited by Nisa Kincaid RN. cf2 02:14 CT ABD & PELVIS: No Contrast Returned. EDMS 02:39 Jason Zuniga is Referral Physician. btw 02:57 Patient visited by Kaylie Alaniz PCA. cln 14:03 T-Sheet-- Draft Copy was scanned into [employer] and attached to record. gb 14:03 Radiology Report was scanned into [employer] and attached to record. gb Administered Medications: 01:56 Drug: NS 0.9% 1000 ml [sodium chloride 0.9 % intravenous solution] Route: IV; Rate: cf2 bolus; Site: left antecubital; 02:43 Follow up: Response: No significant change. cf2 01:56 Drug: Ondansetron 4 mg [ondansetron HCl 2 mg/mL intravenous solution (2 mL)] Route: cf2 IVP; Site: left antecubital; 02:43 Follow up: Response: No significant change. cf2 01:57 Drug: ketorolac 30 mg [ketorolac 30 mg/mL (1 mL) injection solution (1 mL)] Route: IVP; cf2 Site: left antecubital; 02:43 Follow up: Response: No significant change. cf2 02:14 Not Given (Patient Refused): Tamsulosin Extended Release 24 hour Capsule 0.4 mg PO once btw 02:15 Drug: cefTRIAXone 2 grams [ceftriaxone 1 gram solution for injection] Route: IVPB; cf2 Infused Over: 30 mins; Site: left antecubital; :43 Follow up: Response: Pain is decreased cf2 02:15 Drug: Dilaudid - HYDROmorphone 0.5 mg [hydromorphone 1 mg/mL injection syringe (0.5 cf2 mL)] Route: IVP; Site: left antecubital; :43 Follow up: Response: Pain is decreased cf2 03:20 Drug: oxyCODONE-acetaminophen 4 pack 1 packets [oxycodone-acetaminophen 5 mg-325 mg cf2 tablet (1 tabs)] {Co-Signature: [email or web address] (Anisa Mahmood RN).} Route: PO; Order Results: Lab Order: Amylase; SPEC'M 10/26/16 01:37 Test: AMYLASE; Value: 30; Range: 25-115; Units: U/L; Status: F Lab Order: Basic Metabolic Profile; SPEC'M 10/26/16 01:37 Test: GLUCOSE, FASTING; Value: 199; Range: 70-105; Abnormal: Above high normal; Units: MG/DL; Status: F Test: BLOOD UREA NITROGEN; Value: 14; Range: 7-18; Units: MG/DL; Status: F Test: CREATININE FOR GFR; Value: 0.87; Range: 0.55-1.02; Units: MG/DL; Status: F Test: GLOMERULAR FILTRATION RATE; Value: > 60.0; Range: >58; Status: F Test: SODIUM LEVEL; Value: 145; Range: 136-145; Units: MEQ/L; Status: F Test: POTASSIUM SERUM; Value: 3.8; Range: 3.5-5.1; Units: MEQ/L; Status: F Test: CHLORIDE LEVEL; Value: 109; Range: 98-107; Abnormal: Above high normal; Units: MEQ/L; Status: F Test: CARBON DIOXIDE LEVEL; Value: 26; Range: 21-32; Units: MEQ/L; Status: F Test: ANION GAP; Value: 10; Range: 8-16; Units: MEQ/L; Status: F Test: CALCIUM LEVEL; Value: 8.5; Range: 8.5-10.1; Units: MG/DL; Status: F Test Note: ; Units are mL/min/1.73 m2 Chronic Kidney Disease Staging per NKF: Stage I & II GFR >=60 Normal to Mildly Decreased Stage III GFR 30-59 Moderately Decreased Stage IV GFR 15-29 Severely Decreased Stage V GFR <15 Very Little GFR Left ESRD GFR <15 on DIGITIZER Lab Order: CBC with Diff; SPEC'M 10/26/16 01:37 Test: WHITE BLOOD COUNT; Value: 5.0; Range: 4.0-10.0; Units: K/mm3; Status: F Test: RED BLOOD COUNT; Value: 3.98; Range: 4.00-5.40; Abnormal: Below low normal; Units: M/mm3; Status: F Test: HEMOGLOBIN; Value: 11.9; Range: 12.0-16.0; Abnormal: Below low normal; Units: g/dl; Status: F Test: HEMATOCRIT; Value: 35.6; Range: 36.0-47.0; Abnormal: Below low normal; Units: %; Status: F Test: MEAN CORPUSCULAR VOLUME; Value: 89.4; Range: 80.0-96.0; Units: fl; Status: F Test: MEAN CORPUSCULAR HEMOGLOBIN; Value: 29.9; Range: 27.0-33.0; Units: pg; Status: F Test: MEAN CORPUSCULAR HGB CONC; Value: 33.4; Range: 32.0-36.5; Units: g/dl; Status: F Test: RED CELL DISTRIBUTION WIDTH; Value: 13.0; Range: 11.5-14.5; Units: %; Status: F Test: PLATELET COUNT, AUTOMATED; Value: 261; Range: 150-450; Units: k/mm3; Status: F Test: NEUTROPHILS %; Value: 66.4; Range: 36.0-66.0; Abnormal: Above high normal; Units: %; Status: F Test: LYMPH %; Value: 20.0; Range: 24.0-44.0; Abnormal: Below low normal; Units: %; Status: F Test: MONO %; Value: 5.5; Range: 0.0-5.0; Abnormal: Above high normal; Units: %; Status: F Test: EOS %; Value: 4.6; Range: 0.0-3.0; Abnormal: Above high normal; Units: %; Status: F Test: BASO %; Value: 0.7; Range: 0.0-1.0; Units: %; Status: F Test: LARGE UNSTAINED CELL %; Value: 2.9; Range: 0.0-4.0; Units: %; Status: F Test: NEUTROPHILS #; Value: 3.3; Range: 1.8-7.7; Units: K/mm3; Status: F Test: LYMPH #; Value: 1.0; Range: 1.5-4.5; Abnormal: Below low normal; Units: K/mm3; Status: F Test: MONO #; Value: 0.3; Range: 0.0-0.8; Units: K/mm3; Status: F Test: EOS #; Value: 0.2; Range: 0.0-0.50; Units: K/mm3; Status: F Test: BASO #; Value: 0.0; Range: 0.0-0.2; Units: K/mm3; Status: F Test: LARGE UNSTAINED CELL #; Value: 0.1; Range: 0.0-0.4; Units: K/mm3; Status: F Lab Order: Lipase; SPEC'M 10/26/16 01:37 Test: LIPASE; Value: 166; Range: 73-393; Units: U/L; Status: F Lab Order: Liver Profile; SPEC'M 10/26/16 01:37 Test: AST/SGOT; Value: 23; Range: 15-37; Units: U/L; Status: F Test: ALT/SGPT; Value: 33; Range: 12-78; Units: U/L; Status: F Test: ALKALINE PHOSPHATASE; Value: 93; Range: 45-117; Units: U/L; Status: F Test: BILIRUBIN,TOTAL; Value: 0.3; Range: 0.2-1.0; Units: MG/DL; Status: F Test: BILIRUBIN,DIRECT; Value: < 0.1; Range: 0.0-0.2; Units: MG/DL; Status: F Test: TOTAL PROTEIN; Value: 6.5; Range: 6.4-8.2; Units: GM/DL; Status: F Test: ALBUMIN; Value: 3.3; Range: 3.2-5.2; Units: GM/DL; Status: F Test: ALBUMIN/GLOBULIN RATIO; Value: 1.03; Range: 1.00-1.93; Status: F Lab Order: Urinalysis; SPEC'M 10/26/16 01:37 Test: APPEARANCE, URINE; Value: HAZY; Range: CLEAR; Status: F Test: COLOR, URINE; Value: YELLOW; Range: YELLOW; Status: F Test: PH,URINE; Value: 7.0; Range: 5.0-9.0; Units: UNITS; Status: F Test: SPECIFIC GRAVITY URINE AUTO; Value: 1.012; Range: 1.002-1.035; Status: F Test: PROTEIN, URINE AUTO; Value: 2+; Range: NEGATIVE; Abnormal: Above high normal; Units: mg/dL; Status: F Test: GLUCOSE, URINE (UA) AUTO; Value: 1+; Range: NEGATIVE; Abnormal: Above high normal; Units: mg/dL; Status: F Test: KETONE, URINE AUTO; Value: NEGATIVE; Range: NEGATIVE; Units: mg/dL; Status: F Test: UROBILINOGEN, URINE AUTO; Value: 0.2; Range: 0.0-2.0; Units: mg/dL; Status: F Test: BILIRUBIN, URINE AUTO; Value: NEGATIVE; Range: NEGATIVE; Status: F Test: NITRITE, URINE AUTO; Value: NEGATIVE; Range: NEGATIVE; Status: F Test: LEUKOCYTE ESTERASE, URINE AUTO; Value: 1+; Range: NEGATIVE; Abnormal: Above high normal; Status: F Test: BLOOD, URINE BLOOD; Value: 2+; Range: NEGATIVE; Abnormal: Above high normal; Status: F Test: WBC, URINE AUTO; Value: 8; Range: 0-3; Abnormal: Above high normal; Units: /HPF; Status: F Test: RBC, URINE AUTO; Value: 95; Range: 0-3; Abnormal: Above high normal; Units: /HPF; Status: F Test: BACTERIA, URINE AUTO; Value: 1+; Range: NEGATIVE; Abnormal: Above high normal; Status: F Test: SQUAMOUS EPITHELIAL CELL UR AU; Value: 0; Range: 0-6; Units: /HPF; Status: F Test: HYALINE CAST, URINE AUTO; Value: 0; Range: 0-1; Units: /LPF; Status: F Lab Order: Urine Culture; SPEC'M 10/26/16 01:37 Test: URINE CULTURE; Value: URINE CULTURE RESULT NO GROWTH CLINICAL SIGNIFICANCE 1 ORGANISM; Status: F Radiology Order: CT ABD & PELVIS: No Contrast Test: CT ABD & PELVIS: No Contrast REASON FOR EXAMINATION: Right flank pain with stent.;Appendicitis/RLQ Pain; ; CLINICAL HISTORY: Abdominal pain.; TECHNIQUE: Multiple axial, sagittal and coronal CT images were obtained through the abdomen and pelvi; s without administration of oral or IV contrast material.; COMMENTS:; The liver is moderately enlarged with decreased attenuation without mass or defect. There is no intra; or extrahepatic biliary ductal dilatation. The spleen is normal. The gallbladder is within normal li; mits. The pancreas is of normal contour and attenuation characteristics. There is no evidence of adre; nal mass.; Bilateral nonobstructing renal stones with the largest measuring 3 mm.; Mild right hydroureteronephrosis. Right double-J catheter is in good position.; Small sliding-type hernia.; There is no evidence for appendicitis. There is no bowel wall thickening. No evidence for small or la; rge bowel obstruction. There is no evidence of abdominal ascites or lymphadenopathy.; There is no evidence of intrinsic or extrinsic bladder mass. Diffuse thickening of the wall of the bl; adder. There is no pelvic ascites or lymphadenopathy. Intrauterine device is seen.; Images of the lung bases show no evidence of pleural or parenchymal mass. There are no pleural effusi; ons. Small sliding hiatal hernia.; The bony structures are free of lytic or blastic lesions.; IMPRESSION:; Mild right hydroureteronephrosis.; Right perinephric fat stranding.; Right double-J catheter is in good position.; Diffuse thickening of the wall of the bladder.; Intrauterine device is in good position.; Thank you for your kind referral of this patient.; ; Outcome: 01:57 CT Study completed. cf2 02:39 Discharge ordered by Provider. btw 03:56 Discharge Assessment: Patient awake, alert and oriented x 3. No cognitive and/or cf2 functional deficits noted. Patient verbalized understanding of disposition instructions. Patient patient administered narcotics - yes. Pt provided with safe discharge. The following High Risk Discharge criteria are identified: None. Discharged to home. Condition: good Condition: stable Condition: improved. 03:57 Patient left the ED. cf2 Signatures: Dispatcher [employer] EDMS Cammie Pina, Reg Reg gb Moises Boswell, MARCOS PA btw Kasandra Ferrell,RN RN cjAngeline Price gjAna Lloyd, Reg Reg hs2 Kaylie Alaniz, TOURING PRODUCTION MANAGER TOURING PRODUCTION MANAGER Nisa Peterson RN RN cf2 Anisa Mahmood RN [email or web address] Chart Complete JORGE
== END 2016-10-26 03:57 | disposition home or self-care (01) ==
LOC: M ED 00:49
DX: N10 Acute pyelonephritis (principal); N30.90 Cystitis, unspecified without hematuria; N13.30 Unspecified hydronephrosis; N13.4 Hydroureter; R73.9 Hyperglycemia, unspecified; C50.919 Malignant neoplasm of unspecified site of unspecified female breast; K21.9 Gastro-esophageal reflux disease without esophagitis; G43.909 Migraine, unspecified, not intractable, without status migrainosus; J30.2 Other seasonal allergic rhinitis; Z79.899 Other long term (current) drug therapy; Z88.8 Allergy status to other drugs, medicaments and biological substances
CPT/HCPCS: 36415; 74176; 80048; 80076; 81001; 82150; 83690; 85025; 87086; 96374; 96375; 99284; J0696; J1170; J1885; J2405

== ENCOUNTER → 2017-01-03 | Outpatient (REF) | payer OTHER | LOC: M LAB REF 12:42 | PROVIDERS: ATTEND Physician Assistant | DX: J02.9 Acute pharyngitis, unspecified (principal) ==

== ENCOUNTER → 2018-03-17 | Outpatient (CLI) | payer OTHER ==
[2018-03-17 18:44] LABS: HEMATOCRIT 37.1 % (36.0-47.0); HEMOGLOBIN 12.2 g/dl (12.0-15.5); MEAN CORPUSCULAR HEMOGLOBIN 29.8 pg (27.0-33.0); MEAN CORPUSCULAR HGB CONC 32.9 g/dl (32.0-36.5); MEAN CORPUSCULAR VOLUME 90.5 fl (80.0-96.0); PLATELET COUNT, AUTOMATED 196 10^3/uL (150-450); RED CELL DISTRIBUTION WIDTH 14.4 % (11.5-14.5)
[2018-03-17 18:52] LABS: ALBUMIN 3.7 GM/DL (3.2-5.2); ALKALINE PHOSPHATASE 85 U/L (45-117); ALT/SGPT 31 U/L (12-78); ANION GAP 6 MEQ/L (8-16); AST/SGOT 16 U/L (7-37); BILIRUBIN,TOTAL 0.3 MG/DL (0.2-1.0); BLOOD UREA NITROGEN 18 MG/DL (7-18); C REACTIVE PROTEIN QUANTITATIV 1.08 MG/DL (0.00-0.30); CALCIUM LEVEL 8.6 MG/DL (8.5-10.1); CARBON DIOXIDE LEVEL 28 MEQ/L (21-32); CHLORIDE LEVEL 111 MEQ/L (98-107); CREATININE FOR GFR 0.86 MG/DL (0.55-1.30); GLOMERULAR FILTRATION RATE > 60.0 (>58); GLUCOSE, FASTING 115 MG/DL (70-100); POTASSIUM SERUM 4.2 MEQ/L (3.5-5.1); SODIUM LEVEL 145 MEQ/L (136-145); TOTAL PROTEIN 7.4 GM/DL (6.4-8.2)
[2018-03-17 19:04] LABS: ERYTHROCYTE SEDIMENTATION RATE 6 mm/hr (0-20)
== END ==
LOC: M LRY 17:02
DX: D86.9 Sarcoidosis, unspecified (principal); Z79.899 Other long term (current) drug therapy
CPT/HCPCS: 80053

== ENCOUNTER → 2018-04-15 | Outpatient (CLI) | payer OTHER ==
[2018-04-15 19:48] LABS: HEMATOCRIT 39.4 % (36.0-47.0); HEMOGLOBIN 12.6 g/dl (12.0-15.5); MEAN CORPUSCULAR HEMOGLOBIN 29.9 pg (27.0-33.0); MEAN CORPUSCULAR VOLUME 93.6 fl (80.0-96.0); PLATELET COUNT, AUTOMATED 192 10^3/uL (150-450); RED BLOOD COUNT 4.21 10^6/uL (4.00-5.40); WHITE BLOOD COUNT 4.8 10^3/uL (4.0-10.0)
[2018-04-15 19:50] LABS: ALBUMIN 3.5 GM/DL (3.2-5.2); ALBUMIN/GLOBULIN RATIO 1.03 (1.00-1.93); ALKALINE PHOSPHATASE 92 U/L (45-117); ALT/SGPT 45 U/L (12-78); ANION GAP 10 MEQ/L (8-16); AST/SGOT 25 U/L (7-37); BILIRUBIN,TOTAL 0.4 MG/DL (0.2-1.0); BLOOD UREA NITROGEN 13 MG/DL (7-18); C REACTIVE PROTEIN QUANTITATIV 0.79 MG/DL (0.00-0.30); CALCIUM LEVEL 8.1 MG/DL (8.5-10.1); CARBON DIOXIDE LEVEL 24 MEQ/L (21-32); CHLORIDE LEVEL 108 MEQ/L (98-107); CREATININE FOR GFR 0.77 MG/DL (0.55-1.30); GLOMERULAR FILTRATION RATE > 60.0 (>58); GLUCOSE, FASTING 127 MG/DL (70-100); POTASSIUM SERUM 3.9 MEQ/L (3.5-5.1); SODIUM LEVEL 142 MEQ/L (136-145); TOTAL PROTEIN 6.9 GM/DL (6.4-8.2)
[2018-04-15 20:48] LABS: ERYTHROCYTE SEDIMENTATION RATE 6 mm/hr (0-20)
== END ==
LOC: M LRY 11:33
DX: Z51.81 Encounter for therapeutic drug level monitoring (principal); Z79.899 Other long term (current) drug therapy; D86.9 Sarcoidosis, unspecified
CPT/HCPCS: 80053

== ENCOUNTER → 2018-07-27 | Outpatient (REF) | payer OTHER | LOC: M SFHCLERA 14:47 | DX: J02.9 Acute pharyngitis, unspecified (principal) ==

== ENCOUNTER → 2018-09-16 | Outpatient (REF) | payer OTHER | LOC: M SFHCLERA 20:04 | DX: J02.9 Acute pharyngitis, unspecified (principal) ==

== ENCOUNTER → 2018-10-18 | Outpatient (CLI) | payer OTHER ==
[~2018-10-18] MED LIST changes: +FLOM0.4C39 PO; -FLOM5CAP PO; +PYRI1TAB5 PO; -PYRI200T5 PO; -TAMO20TA4 PO; +TAMO20TA8 PO; +TOPI100T9 PO; -TOPI1TAB31 PO
[2018-10-18 20:09] LABS: ALBUMIN 3.7 GM/DL (3.2-5.2); ALT/SGPT 32 U/L (12-78); BILIRUBIN,TOTAL 0.4 MG/DL (0.2-1.0); BLOOD UREA NITROGEN 16 MG/DL (7-18); CALCIUM LEVEL 8.6 MG/DL (8.5-10.1); CARBON DIOXIDE LEVEL 24 MEQ/L (21-32); CHLORIDE LEVEL 107 MEQ/L (98-107); CREATININE FOR GFR 0.89 MG/DL (0.55-1.30); GLOMERULAR FILTRATION RATE > 60.0 (>58); GLUCOSE, FASTING 173 MG/DL (70-100); POTASSIUM SERUM 3.7 MEQ/L (3.5-5.1); SODIUM LEVEL 141 MEQ/L (136-145); TOTAL PROTEIN 7.2 GM/DL (6.4-8.2)
== END ==
LOC: M LRY 18:11
DX: C50.919 Malignant neoplasm of unspecified site of unspecified female breast (principal)

== ENCOUNTER → 2018-12-23 | Outpatient (CLI) | payer OTHER, MEDICAID ==
--- NOTE | 2018-12-24 02:12 | REP ---
Clinical: Trauma. Technique: Frontal view of the chest with four views of the left hemithorax. Findings: Frontal view of the chest demonstrates no acute cardiopulmonary process. Multiple views of the left hemithorax demonstrates no obvious acute rib fracture or pathology. Impression: Normal left rib series Electronically Signed by Zeke Kong MD 12/24/2018 02:04 A
== END ==
LOC: M RAD 17:28
PROVIDERS: ATTEND Physician Assistant Medical
DX: S29.8XXA Other specified injuries of thorax, initial encounter (principal); X58.XXXA Exposure to other specified factors, initial encounter; Y92.89 Other specified places as the place of occurrence of the external cause

== ENCOUNTER → 2019-04-28 | Outpatient (CLI) | payer OTHER, MEDICAID ==
[~2019-04-28] MED LIST changes: +AMLO10TA PO; +ATEN25TA PO; +CELE1CAP4 PO; +CETI10CH PO; +FOLI400T PO; +GABA-1171 PO; +HUMI40KI SC; +KEFL250C11 PO; +METF10004 PO; +METH25IN12 SC; +OMEP1CAP73 PO; -OMEP20CA3 PO; +TRAM50TA2 PO
--- NOTE | 2019-04-28 13:47 | REP ---
MRI brain without contrast: History: Migraine headache. History of breast cancer. Progressive symptoms. Comparison study: Comparison MRI study is from August 24, 2015. Technique: Axial and sagittal imaging planes are utilized for T1 and T2-weighted scans. Sequences include spin-echo, fast spin echo, FLAIR, and diffusion weighted sequences. MRI findings: No bony calvarial lesion is seen. Craniocervical junction and upper cervical cord are normal in appearance. There is no MR evidence of significant paranasal sinus disease. No intraorbital abnormality is seen. The lateral, third, and fourth ventricles are normal in size and position. Holbrook-white differentiation pattern is intact above and below the tentorium. There is no evidence of intracranial hemorrhage. No mass, infarction, extra-axial fluid collection or midline shift is seen. No abnormal white matter lesion is seen. Impression: Negative noncontrast brain MRI study. Electronically Signed by Maynor Mann MD 04/28/2019 01:39 P
== END ==
LOC: M RAD 12:46
PROVIDERS: ATTEND Family Medicine
DX: G43.009 Migraine without aura, not intractable, without status migrainosus (principal)

== ENCOUNTER 2019-06-05 14:01 | Emergency (ER) | payer MEDICAID, OTHER ==
[~2019-06-05] VITALS: Ht 172.7 cm; Wt 89.3 kg
[~2019-06-05 14:01] MED LIST changes: -AMLO10TA PO; -ATEN25TA PO; -CELE1CAP4 PO; -CETI10CH PO; -FOLI400T PO; -GABA-1171 PO; -HUMI40KI SC; -KEFL250C11 PO; -METF10004 PO; -METH25IN12 SC; -OMEP1CAP73 PO; +OMEP20CA4 PO; -TRAM50TA2 PO
[2019-06-05] MEDS ORDERED: CELE1CAP4 PO (15:02)
[2019-06-05] MEDS ORDERED: FOLI400T PO (15:02)
[2019-06-05] MEDS ORDERED: GABA-1171 PO (15:02)
[2019-06-05] MEDS ORDERED: METH25IN12 SC (15:02)
[2019-06-05] MEDS ORDERED: METF10004 PO (15:02)
[2019-06-05] MEDS ORDERED: KETOROLAC 30 MG/ML VIAL (J1885) IV ONE (15:45)
[2019-06-05] MEDS ORDERED: NS 1,000 ML IV ONE (15:45)
[2019-06-05] MEDS ORDERED: PROCHLORPERAZINE 10 MG/2 ML VIAL (J0780) IV ONE (15:45)
[2019-06-05] MEDS ORDERED: diphenhydrAMINE INJ 50MG/ML VIAL (J1200) IV ONE (15:45)
[2019-06-05] MEDS ORDERED: MAG SULF 1GM/100ML (MAG RUN) 1 GM in APPROPRIATE DILUENT 1 EA IV ONE ×2 (16:45→17:45)
[2019-06-05] MEDS ORDERED: FIORICET TAB PO ONE (16:45)
[2019-06-05 19:18] VITALS: BP 144/89
== END 2019-06-05 19:38 | disposition home or self-care (01) ==
LOC: M ED 14:01
DX: R51 Headache (principal); K21.9 Gastro-esophageal reflux disease without esophagitis; J30.2 Other seasonal allergic rhinitis; Z79.899 Other long term (current) drug therapy; Z88.8 Allergy status to other drugs, medicaments and biological substances
CPT/HCPCS: 96374; 96375; 99284; J0780; J1200; J1885; J3475

== ENCOUNTER → 2019-07-02 | Outpatient (REF) | payer OTHER ==
[~2019-07-02] MED LIST changes: +AMLO10TA PO; +ATEN25TA PO; +CELE1CAP4 PO; +CETI10CH PO; +FOLI400T PO; +GABA-1171 PO; +HUMI40KI SC; +METF10004 PO; +METH25IN12 SC
[2019-07-02 13:34] LABS: APPEARANCE, URINE HAZY (CLEAR); BACTERIA, URINE AUTO NEGATIVE (NEGATIVE); BILIRUBIN, URINE AUTO NEGATIVE (NEGATIVE); BLOOD, URINE BLOOD 1+ (NEGATIVE); CALCIUM OXALATE CRYSTALS MODERATE; COLOR, URINE YELLOW (YELLOW); GLUCOSE, URINE (UA) AUTO 1+ mg/dL (NEGATIVE); KETONE, URINE AUTO TRACE mg/dL (NEGATIVE); LEUKOCYTE ESTERASE, URINE AUTO TRACE (NEGATIVE); MUCUS, URINE SMALL (NEGATIVE); NITRITE, URINE AUTO NEGATIVE (NEGATIVE); PROTEIN, URINE AUTO 1+ mg/dL (NEGATIVE); RBC, URINE AUTO 13 /HPF (0-3); SQUAMOUS EPITHELIAL CELL UR AU 5 /HPF (0-6); UROBILINOGEN, URINE AUTO 0.2 mg/dL (0.0-2.0); WBC, URINE AUTO 4 /HPF (0-3)
== END ==
LOC: M SMT 12:49
PROVIDERS: ATTEND Nurse Practitioner Women's Health
DX: N13.2 Hydronephrosis with renal and ureteral calculous obstruction (principal)

== ENCOUNTER → 2019-07-20 | Outpatient (REF) | payer OTHER | LOC: M LAB REF 09:37 | PROVIDERS: ATTEND Nurse Practitioner Family | DX: R30.0 Dysuria (principal) ==

== ENCOUNTER 2019-08-01 07:57 | Day surgery (SDC) | payer OTHER ==
[~2019-08-01] VITALS: Ht 172.7 cm; Wt 89.5 kg
[~2019-08-01 07:57] MED LIST changes: +LIDOCAINE 1% MDV 20ML VIAL SQ PRN; +LR 1,000 ML IV ONE; +ceFAZolin SOD 2 GM in IV 1 EA IV ONE
[2019-08-01] MEDS ORDERED: dexameTHASONE 4 MG/ML 1ML VIAL (J1100) As Ordered ONE (08:43)
[2019-08-01] MEDS ORDERED: PROPOFOL 200 MG/20 ML VIAL As Ordered ONE ×2 (08:43→11:09)
[2019-08-01] MEDS ORDERED: MIDAZOLAM INJ 2 MG/2 ML VIAL (J2250) As Ordered ONE (08:43)
[2019-08-01] MEDS ORDERED: LIDOCAINE 2% INJ 100 MG/5 ML SDV (FOR ANES.) As Ordered ONE (08:43)
[2019-08-01] MEDS ORDERED: fentaNYL 100 MCG/2 ML INJECTION (J3010) As Ordered ONE (08:43)
[2019-08-01] MEDS ORDERED: ONDANSETRON 4MG/2ML VIAL (J2405) As Ordered ONE (08:43)
[2019-08-01] MEDS ORDERED: CONRAY-60 60% 50ML VIAL (Q9961) As Ordered ONE (10:31)
[2019-08-01] MEDS ORDERED: ACETAMINOPHEN 1000MG 100ML IV BTL (OFIRMEV) (J0131 PER 10MG) As Ordered ONE (11:00)
[2019-08-01] MEDS ORDERED: GLYCOPYRROLATE INJ 0.2 MG/ML 2 ML VIAL As Ordered ONE (11:02)
[2019-08-01] MEDS ORDERED: ePHEDrine SULFATE 25 MG/5 ML(5MG/ML) SYRINGE As Ordered ONE (11:04)
[2019-08-01] MEDS ORDERED: PHENYLephrine HCL 500 MCG/5 ML (100MCG/ML) SYRINGE (J2370) As Ordered ONE ×2 (11:09→11:28)
[2019-08-01] MEDS ORDERED: KEFL250C11 PO (12:00)
[2019-08-01] MEDS ORDERED: traMADol 50 MG TAB PO PRN (12:00)
[2019-08-01] MEDS ORDERED: TRAM50TA2 PO (12:00)
--- NOTE | 2019-08-01 12:01 | REP ---
RETROGRADE PYELOGRAM: Single view. HISTORY: Cystoscopy. Stent laser lithotripsy. 1 minute 45 seconds of fluoroscopy time is reported. FINDINGS: A single fluoroscopically obtained last image hold spot radiograph of the abdomen documents double pigtail left ureteral stent placement. An IUD is noted. Electronically Signed by Maynor Mann MD 08/01/2019 07:39 P
--- NOTE | 2019-08-01 12:06 | ROOPDOC ---
[facility] Report Of Operation Report of Operation DATE OF PROCEDURE: 08/01/19 PREPROCEDURE DIAGNOSES: Left ureteral calculus. POSTPROCEDURE DIAGNOSES: Same. PROCEDURE: Cystoscopy, left retrograde pyelogram, left ureteroscopy, right distal ureteroscopy, left double-J stent. SURGEON: Isael Burleson MD ANESTHESIA: Gen. LMA. ESTIMATED BLOOD LOSS: Approximately less than 20 mL. COMPLICATIONS: None. REMARKS: 6 Peruvian left double-J stent. PROCEDURE NOTE: Patient was brought to the operating room and following ministration of general anesthesia was placed in the dorsal lithotomy position and prepped and draped in usual sterile fashion. A 22 Peruvian cystoscope was inserted. Fluoroscopy was performed revealing a calcification in the right pelvis in the vicinity of the right distal ureter. No calcifications were seen on the left. A 038 guidewire was advanced into the left ureteral orifice. The wire was advanced the renal pelvis. The distal ureter was then dilated using a 10 Peruvian dual-lumen catheter. A Glidewire was then inserted through the catheter into the renal pelvis and the lumen catheter was removed. Cystoscope was removed. A 6 Peruvian semirigid ureteroscope was inserted over the Glidewire. The distal ureter was normal with no evidence of stone. There was no hydroureter present. The scope was advanced to the renal pelvis under direct vision and no stone was seen. The renal collecting system was examined and there was no evidence of hydronephrosis. No stones were seen. The ureteroscope was then removed under direct vision. A 5 Peruvian open-ended catheter was placed over the wire and the wire was removed. Retrograde pyelogram was performed. There was no evidence of hydronephrosis. No stone was seen. The wire was replaced and the open-ended catheter was removed. A 6 Peruvian double-J stent was inserted under direct vision using fluoroscopy guidance. Once good position was confirmed the wires removed leaving the stent in place. Due to the presence of the calcification in the right pelvis and it was decided to visually inspect the right distal ureter. An 038 guidewire was advanced into the right ureteral orifice and advanced the renal pelvis. The cystoscope was removed. The 6 Peruvian semirigid ureteroscope was then inserted under direct vis ion into the right ureteral orifice. This was advanced to the level of the calcification seen on fluoroscopy. No stone was seen in the calcification was clearly outside the ureter. The ureteroscope was then removed. The bladder was then emptied. Patient tolerated procedure well returned to recovery room in satisfactory condition. Isael Burleson MD Aug 01, 2019 12:06
[2019-08-01 12:35] VITALS: BP 121/71
[2019-08-01] MEDS ORDERED: ONDANSETRON 4MG/2ML VIAL (J2405) IV PRN (12:45)
[2019-08-01] MEDS ORDERED: LR 1,000 ML IV SCH (12:45)
[2019-08-01] MEDS ORDERED: HYDROMORPHONE HCL 0.5 MG/ 0.5 ML SYRINGE (J1170 PER 1) IV PRN (12:45)
[2019-08-01] MEDS ORDERED: fentaNYL 100 MCG/2 ML INJECTION (J3010) IV PRN (12:45)
[2019-08-01] MEDS ORDERED: PERCOCET 5MG/325MG TAB PO PRN (12:45)
[2019-08-01] MEDS ORDERED: CEPHALEXIN 250 MG CAP PO SCH (21:00)
== END 2019-08-01 13:00 | disposition home or self-care (01) ==
LOC: M SDC 07:57
PROVIDERS: ATTEND Urology
DX: N20.1 Calculus of ureter (principal); E11.9 Type 2 diabetes mellitus without complications; K21.9 Gastro-esophageal reflux disease without esophagitis; F41.9 Anxiety disorder, unspecified; G47.30 Sleep apnea, unspecified; Z79.84 Long term (current) use of oral hypoglycemic drugs; Z79.899 Other long term (current) drug therapy; Z85.3 Personal history of malignant neoplasm of breast; Z92.21 Personal history of antineoplastic chemotherapy; Z92.3 Personal history of irradiation; Z88.8 Allergy status to other drugs, medicaments and biological substances; Z91.018 Allergy to other foods
CPT/HCPCS: 52332; 74420; C1769; J0131; J0690; J1100; J2250; J2370; J2405; J3010; Q9961

== ENCOUNTER → 2019-08-12 | Outpatient (CLI) | payer OTHER ==
[~2019-08-12] MED LIST changes: +KEFL250C11 PO; -LIDOCAINE 1% MDV 20ML VIAL SQ PRN; -LR 1,000 ML IV ONE; +TRAM50TA2 PO; -ceFAZolin SOD 2 GM in IV 1 EA IV ONE
--- NOTE | 2019-08-12 11:19 | REP ---
Clinical: Chest pain . Comparison: 12/23/2018 . Technique: PA and lateral. Findings: The mediastinum and cardiac silhouette are normal. The lung walker are clear and without acute consolidation, effusion, or pneumothorax. Surgical clips overlying the right mid lung zone again noted. The skeletal structures are intact and normal. Impression: 1. No acute cardiopulmonary process. Electronically Signed by Zeke Kong MD 08/12/2019 11:11 A
== END ==
LOC: M LRY 10:51
PROVIDERS: ATTEND Nurse Practitioner Family
DX: R50.9 Fever, unspecified (principal)

== ENCOUNTER → 2019-08-12 | Outpatient (REF) | payer OTHER | LOC: M SFHCLERA 10:34 | PROVIDERS: ATTEND Nurse Practitioner Family | DX: J02.9 Acute pharyngitis, unspecified (principal) ==

== ENCOUNTER → 2020-03-05 | Outpatient (CLI) | payer OTHER ==
[~2020-03-05] MED LIST changes: +OMEP1CAP73 PO; -OMEP20CA4 PO
--- NOTE | 2020-03-05 17:08 | REP ---
Clinical: Nephrolithiasis. Technique: Real time bhardwaj scale ultrasound examination using curved array transducer. Findings: Right kidney measures 12.1 x 5.2 x 6.0 cm with possible 10 mm nonobstructing calculus. No hydronephrosis, obvious cystic or renal mass appreciated. No perinephric fluid collection. Left kidney measures 11.9 x 5.3 x 5.7 cm with possible 11 mm mid pole calculus. No hydronephrosis, obvious cystic or renal mass lesion appreciated. No perinephric fluid collection. Evaluation of the bladder demonstrates minimal wall thickening to 5 mm without obvious ureteral jets during examination. No mass lesion. Impression: Possible bilateral nephroliths. Electronically Signed by Zeke Kong MD 03/05/2020 04:59 P
== END ==
LOC: M LRY 15:00
PROVIDERS: ATTEND Specialist
DX: N20.0 Calculus of kidney (principal)

== ENCOUNTER → 2020-10-21 | Outpatient (CLI) | payer MEDICARE ==
[~2020-10-21] MED LIST changes: +ATIV1TAB10 PO; +ATOR80TA59 PO; +FENO145T7 PO; +HYDR-3363 PO; +HYDR25TAB PO; +LEVE1INJ5 SC; +OMEP-221 PO; +ROPI0.253 PO; +TRAZ-252 PO; +VENL75CA47 PO; +VITA200048 PO
== END ==
LOC: M LABSMTC 12:00
PROVIDERS: ATTEND Anesthesiology
DX: Z01.812 Encounter for preprocedural laboratory examination (principal); Z20.822 Contact with and (suspected) exposure to COVID-19

== ENCOUNTER 2020-10-25 06:45 | Day surgery (SDC) | payer MEDICARE ==
[~2020-10-25] VITALS: Ht 172.7 cm; Wt 87.1 kg
[~2020-10-25 06:45] MED LIST changes: +NS 1,000 ML IV ONE
[2020-10-25] MEDS ORDERED: propofoL 500 MG/50 ML VIAL As Ordered ONE (07:38)
[2020-10-25] MEDS ORDERED: LIDOCAINE 2% 100MG/5ML SDV (FOR ANES.) As Ordered ONE (07:38)
--- NOTE | 2020-10-25 07:54 | ROOR ---
Patient Name: Lindsay Duarte Procedure Date: 10/25/2020 7:35 AM Date of : 1970 Age: 50 Room: [facility] Gender: Female Note Status: Finalized Procedure: Total Colonoscopy to Cecum + ileoscopy Indications: Screening for colorectal malignant neoplasm, Screening in patient at increased risk: Colorectal cancer in mother before age 60 Providers: Te Sun MD Referring MD: Inocencia Ceron Requesting Provider: Medicines: Monitored Anesthesia Care Complications: No immediate complications. Procedure: Pre-Anesthesia Assessment: - The heart rate, respiratory rate, oxygen saturations, blood pressure, adequacy of pulmonary ventilation, and response to care were monitored throughout the procedure. The Colonoscope was introduced through the anus and advanced to the cecum, identified by its appearance. The colonoscopy was performed without difficulty. The patient tolerated the procedure well. The quality of the bowel preparation was excellent. Findings: The perianal and digital rectal examinations were normal. No other significant abnormalities were identified in a careful examination of the remainder of the colon. The terminal ileum appeared normal. The exam was otherwise without abnormality. Impression: - The examined portion of the ileum was normal. - The examination was otherwise normal. - No specimens collected. - The exam was otherwise normal to the cecum. Recommendation: - Patient has a contact number available for emergencies. The signs and symptoms of potential delayed complications were discussed with the patient. Return to normal activities tomorrow. Written discharge instructions were provided to the patient. - High fiber diet. - Discharge patient to home. - Continue present medications. - Repeat colonoscopy in 5 years for screening purposes. - Return to referring physician. - The findings and recommendations were discussed with the patient. Procedure Code(s): --- Professional --- G0105, Colorectal cancer screening; colonoscopy on individual at high risk Diagnosis Code(s): --- Professional --- Z12.11, Encounter for screening for malignant neoplasm of colon Z80.0, Family history of malignant neoplasm of digestive organs CPT copyright 2019 [employer] [employer]. All rights reserved. The codes documented in this report are preliminary and upon cardiothoracic anesthesia technician review may be revised to meet current compliance requirements. Te Sun MD Te Sun MD 10/25/2020 7:54:10 AM Electronically signed by Te Sun MD Number of Addenda: 0 Note Initiated On: 10/25/2020 7:35 AM Estimated Blood Loss: Estimated blood loss: none.
[2020-10-25 08:24] VITALS: BP 119/68
== END 2020-10-25 08:26 | disposition home or self-care (01) ==
LOC: M OPP 06:45
PROVIDERS: ATTEND Internal Medicine Gastroenterology
DX: Z12.11 Encounter for screening for malignant neoplasm of colon (principal); Z80.0 Family history of malignant neoplasm of digestive organs; I10 Essential (primary) hypertension; E78.5 Hyperlipidemia, unspecified; E11.9 Type 2 diabetes mellitus without complications; R12 Heartburn; M06.9 Rheumatoid arthritis, unspecified; F41.9 Anxiety disorder, unspecified; F32.9 Major depressive disorder, single episode, unspecified; G43.909 Migraine, unspecified, not intractable, without status migrainosus; F12.20 Cannabis dependence, uncomplicated; G47.30 Sleep apnea, unspecified; Z85.3 Personal history of malignant neoplasm of breast; Z92.21 Personal history of antineoplastic chemotherapy; Z92.3 Personal history of irradiation; Z88.8 Allergy status to other drugs, medicaments and biological substances; Z91.018 Allergy to other foods; Z79.4 Long term (current) use of insulin; Z79.899 Other long term (current) drug therapy

== ENCOUNTER → 2021-03-24 | Outpatient (CLI) | payer MEDICARE ==
[~2021-03-24] MED LIST changes: -ESCI20TA PO; +ESCI20TA16 PO; -FOLI400T PO; +FOLI400T13 PO; +HYDR-3490 PO; -HYDR25TAB PO; -NS 1,000 ML IV ONE
--- NOTE | 2021-04-08 12:44 | REPMRS ---
Patient History The patient states she had a clinical breast exam in February 2021. Patient is postmenopausal, has history of breast cancer at age 46, had previous chest radiation therapy at age 46, and had previous chemotherapy at age 46. Family history of breast cancer under age 50 in paternal aunt, colorectal cancer at age 36 in mother. Took hormonal contraceptives for 3 years. Taking tamoxifen for 5 years. Taking unspecified hormones for 3 years. Tomosynthesis is performed. Volpara breast density is c. No breast complaints today Patient signed the MRS sheet Patient diagnosed with breast cancer 07/2015 had lumpectomy w/positive lymph node. Patient had right breast radiation with chemo ending 11/2015. Patient started tamoxifen after finishing chemo and is still taking it. Calling for most recent mammos done @ [facility] in [place], [place]. Patient Identification Verified Scar markers were used Diagnostic Bilateral Mammo: March 24, 2021 - Exam #: [id number] Bilateral CC and MLO view(s) were taken. Technologist: Ana Myles Technologist Prior study comparison: April 03, 2013, bilateral bilat screen digital mammo, performed at [facility] [place] January 01, 2012, bilateral bilat screen digital mammo, performed at [facility] ([place] FINDINGS: The breast tissue is heterogeneously dense. This may lower the sensitivity of mammography. There has been no interval development of masses, areas of architectural distortion or clusters of microcalcifications typical of malignancy. There are stable post treatment changes in the right breast, with stable postsurgical architectural distortion superiorly and adjacent surgical clips.] No significant changes when compared with prior studies. Assessment: BI-RADS/ACR category 2 mammogram. Benign Findings. Recommendation Routine screening mammogram of both breasts in 1 year (for women over age 40). This mammogram was interpreted with the aid of an FDA-approved computer-aided dectection system. Electronically Signed By: Samuel Holbrook MD 04/08/21 [id number]
== END ==
LOC: M WHC 10:04
PROVIDERS: ATTEND Internal Medicine Hematology & Oncology
DX: Z85.3 Personal history of malignant neoplasm of breast (principal); Z92.21 Personal history of antineoplastic chemotherapy; Z92.3 Personal history of irradiation; Z80.3 Family history of malignant neoplasm of breast; Z80.0 Family history of malignant neoplasm of digestive organs; Z79.899 Other long term (current) drug therapy
CPT/HCPCS: 77066; G0279

== ENCOUNTER → 2021-04-20 | Outpatient (CLI) | payer MEDICARE ==
[2021-04-20 19:49] LABS: BLOOD UREA NITROGEN 14 MG/DL (7-18); CALCIUM LEVEL 9.7 MG/DL (8.5-10.1); CARBON DIOXIDE LEVEL 31 MEQ/L (21-32); CHLORIDE LEVEL 102 MEQ/L (98-107); CREATININE FOR GFR 0.93 MG/DL (0.55-1.30); GLOMERULAR FILTRATION RATE > 60.0 (>58); GLUCOSE, FASTING 149 MG/DL (70-100); POTASSIUM SERUM 3.8 MEQ/L (3.5-5.1); SODIUM LEVEL 142 MEQ/L (136-145)
== END ==
LOC: M LAB 18:04
PROVIDERS: ATTEND Internal Medicine Endocrinology, Diabetes & Metabolism
DX: E11.65 Type 2 diabetes mellitus with hyperglycemia (principal)

== ENCOUNTER → 2021-06-08 | Outpatient (CLI) | payer MEDICARE ==
[2021-06-08 17:58] LABS: BASO % 0.5 % (0.0-1.0); EOS # 0.3 10^3/uL (0.0-0.5); EOS % 4.4 % (0.0-3.0); HEMATOCRIT 36.8 % (36.0-47.0); HEMOGLOBIN 11.9 g/dl (12.0-15.5); LYMPH # 1.9 10^3/uL (1.5-5.0); LYMPH % 32.3 % (24.0-44.0); MEAN CORPUSCULAR HEMOGLOBIN 27.7 pg (27.0-33.0); MEAN CORPUSCULAR HGB CONC 32.3 g/dl (32.0-36.5); MEAN CORPUSCULAR VOLUME 85.8 fl (80.0-96.0); MONO # 0.5 10^3/uL (0.0-0.8); MONO % 8.7 % (2.0-8.0); NEUTROPHILS % 53.1 % (36.0-66.0); PLATELET COUNT, AUTOMATED 308 10^3/uL (150-450); RED BLOOD COUNT 4.29 10^6/uL (4.00-5.40); WHITE BLOOD COUNT 5.7 10^3/uL (4.0-10.0)
[2021-06-08 18:43] LABS: ALBUMIN 3.5 GM/DL (3.2-5.2); BILIRUBIN,TOTAL 0.5 MG/DL (0.2-1.0); CALCIUM LEVEL 9.4 MG/DL (8.5-10.1); CREATININE FOR GFR 1.07 MG/DL (0.55-1.30); GLOMERULAR FILTRATION RATE 57.8 (>51); POTASSIUM SERUM 3.6 MEQ/L (3.5-5.1); TOTAL PROTEIN 7.6 GM/DL (6.4-8.2)
== END ==
LOC: M LAB 17:30
PROVIDERS: ATTEND Internal Medicine Hematology & Oncology
DX: C50.911 Malignant neoplasm of unspecified site of right female breast (principal)

== ENCOUNTER → 2021-06-30 | Outpatient (CLI) | payer MEDICARE ==
--- NOTE | 2021-06-30 14:04 | REP ---
INDICATION: INFLAMMATORY POLYARTHROPATHY COMPARISON: None. TECHNIQUE: AP, lateral, bilateral oblique views right and left wrist. FINDINGS: The carpal bones, surrounding osseous structures, soft tissues, and joint spaces are essentially symmetric bilaterally, and age-appropriate. No significant degenerative changes are appreciated. There is no evidence for acute fracture or dislocation. No subcutaneous emphysema or radiodense foreign body. IMPRESSION: Relatively symmetric age-appropriate bilateral wrist radiograph series. <Electronically signed by Zeke Kong > 06/30/21 1400
--- NOTE | 2021-06-30 17:36 | REP ---
INDICATION: INFLAMMATORY POLYARTHROPATHY COMPARISON: None. TECHNIQUE: AP, lateral, bilateral oblique views left foot. FINDINGS: The osseous structures and joint spaces are intact and age-appropriate. No significant arthritic degenerative changes noted. There is no evidence for acute fracture or dislocation. Surrounding soft tissues are unremarkable. No subcutaneous emphysema or radiodense foreign body. IMPRESSION: Relatively age-appropriate examination.. <Electronically signed by Zeke Kong > 06/30/21 [id number]
--- NOTE | 2021-06-30 17:40 | REP ---
INDICATION: INFLAMMATORY POLYARTHROPATHY COMPARISON: None. TECHNIQUE: AP, lateral, bilateral oblique views right and left ankle. FINDINGS: Right ankle: No acute fracture or dislocation. Skeletal structures and joint spaces are intact and essentially age-appropriate. No overt arthritic degenerative changes. Ankle mortise appears stable. No subcutaneous emphysema or radiodense foreign body. Lateral view demonstrates small calcaneal and Achilles spurs. Left ankle: No acute fracture or dislocation. Skeletal structures and joint spaces are intact and essentially age-appropriate. Very small corticated densities at the lateral malleolus may represent old injury. Ankle mortise appears stable. No subcutaneous emphysema or radiodense foreign body. Lateral view demonstrates small calcaneal and Achilles spurs. IMPRESSION: Essentially symmetric age-appropriate examination. <Electronically signed by Zeke Kong > 06/30/21 [id number]
--- NOTE | 2021-06-30 17:47 | REP ---
INDICATION: INFLAMMATORY POLYARTHROPATHY COMPARISON: None. TECHNIQUE: AP, lateral, bilateral oblique views right and left hand. FINDINGS: Right hand: The osseous structures and joint spaces are intact and essentially age-appropriate. No overt arthritic degenerative changes noted. There is no evidence for acute fracture or dislocation. Surrounding soft tissues are unremarkable. No subcutaneous emphysema or radiodense foreign body. Left hand: The osseous structures and joint spaces are intact and essentially age-appropriate. No overt arthritic degenerative changes noted. There is no evidence for acute fracture or dislocation. Surrounding soft tissues are unremarkable. No subcutaneous emphysema or radiodense foreign body IMPRESSION: Essentially symmetric age-appropriate bilateral hand radiograph series. No overt arthritic degenerative changes appreciated. <Electronically signed by Zeke Kong > 06/30/21 [id number]
--- NOTE | 2021-06-30 17:55 | REP ---
INDICATION: INFLAMMATORY POLYARTHROPATHY. COMPARISON: None. TECHNIQUE: Single AP view of the pelvis FINDINGS: Hip joints demonstrate mild increased sclerosis and minimal joint space narrowing with early marginal spurring. The osseous structures are otherwise relatively age-appropriate. No evidence for acute or healed injury. IUD within the central pelvis. Surrounding soft tissues unremarkable. IMPRESSION: Mild symmetric degenerative changes to the bilateral hips. <Electronically signed by Zeke Kong > 06/30/21 [id number]
== END ==
LOC: M RAD 10:38
PROVIDERS: ATTEND Internal Medicine
DX: M06.4 Inflammatory polyarthropathy (principal); D86.9 Sarcoidosis, unspecified

== ENCOUNTER → 2021-06-30 | Outpatient (REF) | payer MEDICARE ==
[2021-06-30 11:45] LABS: APPEARANCE, URINE CLOUDY (CLEAR); BILIRUBIN, URINE AUTO NEGATIVE (NEGATIVE); BLOOD, URINE BLOOD 1+ (NEGATIVE); COLOR, URINE YELLOW (YELLOW); GLUCOSE, URINE (UA) AUTO 3+ mg/dL (NEGATIVE); KETONE, URINE AUTO NEGATIVE (NEGATIVE); LEUKOCYTE ESTERASE, URINE AUTO 3+ (NEGATIVE); NITRITE, URINE AUTO NEGATIVE (NEGATIVE); PROTEIN, URINE AUTO NEGATIVE (NEGATIVE); UROBILINOGEN, URINE AUTO 0.2 mg/dL (0.0-2.0)
[2021-06-30 11:56] LABS: AMORPHOUS SEDIMENT SMALL (NEGATIVE); BACTERIA, URINE AUTO 1+ (NEGATIVE); MUCUS, URINE SMALL (NEGATIVE); RBC, URINE AUTO 10 /HPF (0-3); SQUAMOUS EPITHELIAL CELL UR AU 21 /HPF (0-6); TRANSITIONAL EPITHELIAL AUTO 6 /HPF; WBC, URINE AUTO 125 /HPF (0-3)
[2021-06-30 12:02] LABS: BASO # 0.1 10^3/uL (0.0-0.2); BASO % 0.9 % (0.0-1.0); EOS # 0.3 10^3/uL (0.0-0.5); EOS % 4.5 % (0.0-3.0); HEMATOCRIT 40.9 % (36.0-47.0); HEMOGLOBIN 12.8 g/dl (12.0-15.5); LYMPH # 1.3 10^3/uL (1.5-5.0); LYMPH % 22.5 % (24.0-44.0); MEAN CORPUSCULAR HEMOGLOBIN 26.8 pg (27.0-33.0); MEAN CORPUSCULAR HGB CONC 31.3 g/dl (32.0-36.5); MEAN CORPUSCULAR VOLUME 85.6 fl (80.0-96.0); MONO # 0.4 10^3/uL (0.0-0.8); MONO % 6.8 % (2.0-8.0); NEUTROPHILS # 3.6 10^3/uL (1.5-8.5); NEUTROPHILS % 64.4 % (36.0-66.0); RED BLOOD COUNT 4.78 10^6/uL (4.00-5.40); WHITE BLOOD COUNT 5.6 10^3/uL (4.0-10.0)
[2021-06-30 12:24] LABS: ALBUMIN 3.5 GM/DL (3.2-5.2); ALT/SGPT 58 U/L (12-78); BILIRUBIN,DIRECT 0.2 MG/DL (0.0-0.2); BILIRUBIN,TOTAL 0.4 MG/DL (0.2-1.0); BLOOD UREA NITROGEN 19 MG/DL (7-18); C REACTIVE PROTEIN QUANTITATIV 1.75 MG/DL (0.00-0.30); CALCIUM LEVEL 9.9 MG/DL (8.5-10.1); CARBON DIOXIDE LEVEL 30 MEQ/L (21-32); CHLORIDE LEVEL 100 MEQ/L (98-107); COMPLEMENT C3 166 MG/DL (90-180); COMPLEMENT C4 38 MG/DL (10-40); CREATININE FOR GFR 0.91 MG/DL (0.55-1.30); GLOMERULAR FILTRATION RATE > 60.0 (>51); GLUCOSE, FASTING 324 MG/DL (70-100); POTASSIUM SERUM 3.7 MEQ/L (3.5-5.1); SODIUM LEVEL 138 MEQ/L (136-145); TOTAL PROTEIN 7.5 GM/DL (6.4-8.2)
[2021-06-30 12:30] LABS: CREATININE,RANDOM URINE 30.7 MG/DL
[2021-06-30 15:04] LABS: ERYTHROCYTE SEDIMENTATION RATE 10 mm/hr (0-30)
[2021-07-01 14:11] LABS: ANGIOTENSIN 1 CONVERTING ENZYM 81 U/L (14-82); COMPLEMENT TOTAL (CH50) > 60 U/mL (>41)
== END ==
LOC: M SFHCRHEU 09:26
PROVIDERS: ATTEND Internal Medicine
DX: M06.4 Inflammatory polyarthropathy (principal); D86.9 Sarcoidosis, unspecified

== ENCOUNTER → 2021-07-18 | Outpatient (CLI) | payer MEDICARE ==
--- NOTE | 2021-07-19 13:19 | REP ---
INDICATION: RESTAGING MALIGNANT NEOPLASM OF RIGHT FEMALE BRST. COMPARISON: 02/19/2020 the latest prior PET-CT from an outside institution. There are no recent CTs for comparison. TECHNIQUE: After the intravenous administration of 8.54 mCi of FDG 18 triplane whole-body PET-CT was performed from the skull base to the mid thigh. FINDINGS: There is a nonenlarged hypermetabolic lymph node in the right anterior cervical chain which measures 1 by 0.9 cm and has a maximal SUV value of 2.78. There is an unchanged 1.2 cm sized right paratracheal lymph node which is not hypermetabolic. There is a nonenlarged lymph node in the aortic pulmonary window which is hypermetabolic with a maximal SUV value of 2.54. By report this was previously 2.8. There is normal hilar vascular hypermetabolism without evidence of a hypermetabolic lymph node. The CT component of today's exam shows no evidence of adenopathy, however, this is a nondiagnostic noncontrast enhanced CT obtained today. Note is again made of a nonenlarged hypermetabolic left retrocrural node at the level of the mid abdomen adjacent to the left renal vein and having a maximal SUV value of 3.53 today previously reported as 2.9. Chuck caval hypermetabolic activity previously reported as 2.7 today has a maximal SUV value of 3.58. Retrocaval hypermetabolism seen previously at the level of the right renal vein has abated. Nonenlarged hypermetabolic para-aortic lymph nodes are seen at the level of the inferior kidneys having a maximal SUV value of 3.58. Bilateral nonenlarged pelvic sidewall lymph nodes but having a maximal SUV value on the right of 6.60 and on the left of 3.69. These areas represent a change from the prior exam. Two new areas of hypermetabolism seen antro medial to the left psoas muscle at the level of the pelvic inlet consistent with nonenlarged lymph nodes and having a maximal SUV value of 4.56. Scattered hypermetabolic foci seen throughout the axial and appendicular skeleton and having SUV values ranging from 2.5 in the appendicular skeleton to 3.8 in the axial skeleton. No other areas of abnormal hypermetabolic foci are seen in the neck, chest, abdomen, or pelvis. IMPRESSION: Multiple areas of abnormal hypermetabolic activity seen in the neck, chest, abdomen, and pelvis along with skeletal hypermetabolic activity as described above. The findings are consistent with the patient's known metastatic breast disease. Follow-up is recommended. <Electronically signed by Bharathi Valles > 07/19/21 [id number]
== END ==
LOC: M PLARAD 08:01
PROVIDERS: ATTEND Nurse Practitioner Adult Health
DX: C50.911 Malignant neoplasm of unspecified site of right female breast (principal); M54.50 Low back pain, unspecified; R10.2 Pelvic and perineal pain; C79.89 Secondary malignant neoplasm of other specified sites
CPT/HCPCS: 78815; A9552

== ENCOUNTER → 2021-12-05 | Outpatient (CLI) | payer MEDICARE ==
[~2021-12-05] MED LIST changes: -OMEP-221 PO; +OMEP40CA5 PO
[2021-12-05 14:05] LABS: BASO % 0.6 % (0.0-1.0); EOS # 0.2 10^3/uL (0.0-0.5); EOS % 4.3 % (0.0-3.0); HEMATOCRIT 36.2 % (36.0-47.0); HEMOGLOBIN 11.7 g/dl (12.0-15.5); LYMPH # 1.7 10^3/uL (1.5-5.0); MEAN CORPUSCULAR HGB CONC 32.3 g/dl (32.0-36.5); MEAN CORPUSCULAR VOLUME 80.4 fl (80.0-96.0); MONO # 0.4 10^3/uL (0.0-0.8); MONO % 7.3 % (2.0-8.0); NEUTROPHILS # 2.6 10^3/uL (1.5-8.5); NEUTROPHILS % 52.6 % (36.0-66.0); PLATELET COUNT, AUTOMATED 356 10^3/uL (150-450); WHITE BLOOD COUNT 4.9 10^3/uL (4.0-10.0)
[2021-12-05 14:41] LABS: ALT/SGPT 69 U/L (12-78); BILIRUBIN,DIRECT 0.2 MG/DL (0.0-0.2); BILIRUBIN,TOTAL 0.4 MG/DL (0.2-1.0); BLOOD UREA NITROGEN 16 MG/DL (7-18); CALCIUM LEVEL 9.5 MG/DL (8.5-10.1); CARBON DIOXIDE LEVEL 29 MEQ/L (21-32); CHLORIDE LEVEL 99 MEQ/L (98-107); CREATININE FOR GFR 0.82 MG/DL (0.55-1.30); GLOMERULAR FILTRATION RATE > 60.0 (>51); GLUCOSE, FASTING 169 MG/DL (70-100); POTASSIUM SERUM 3.4 MEQ/L (3.5-5.1); SODIUM LEVEL 135 MEQ/L (136-145); TOTAL PROTEIN 7.8 GM/DL (6.4-8.2)
[2021-12-05 14:46] LABS: HEPATITIS B SURFACE ANTIBODY NEGATIVE (POSITIVE)
[2021-12-05 14:56] LABS: HEPATITIS B SURFACE ANTIGEN NEGATIVE (NEGATIVE)
[2021-12-05 15:25] LABS: HEPATITIS C VIRUS ABY INDEX 0.1 INDEX (<0.8)
== END ==
LOC: M LAB 13:23
PROVIDERS: ATTEND Internal Medicine
DX: M06.4 Inflammatory polyarthropathy (principal); Z11.59 Encounter for screening for other viral diseases; D86.86 Sarcoid arthropathy

== ENCOUNTER → 2021-12-20 | Outpatient (CLI) | payer MEDICARE ==
[~2021-12-20] VITALS: Ht 175.3 cm; Wt 82.4 kg
[~2021-12-20] MED LIST changes: +ACETAMINOPHEN 650MG PO PRIOR TO INFUSION PO ONE; +ALBUTEROL SULFATE 2.5 MG/0.5 ML INH NEB SOLN INH PRN; +EPINEPHrine INJ 1 MG/ML 1ML AMP IM PRN; +INFLIXIMAB BIOSIMILAR 400 MG in NS 210 ML IV ONE; +NS 1,000 ML IV SCH; +diphenhydrAMINE 50MG CAP PO ONE; +diphenhydrAMINE 50MG/ML VIAL (J1200) IV PRN; +methylPREDNISolone 125MG 2ML VIAL IV PRN
== END ==
LOC: M INFU 13:19
PROVIDERS: ATTEND Internal Medicine
DX: Z53.9 Procedure and treatment not carried out, unspecified reason (principal)

== ENCOUNTER → 2021-12-30 | Outpatient (CLI) | payer MEDICARE ==
[~2021-12-30] MED LIST changes: -ACETAMINOPHEN 650MG PO PRIOR TO INFUSION PO ONE; -ALBUTEROL SULFATE 2.5 MG/0.5 ML INH NEB SOLN INH PRN; -EPINEPHrine INJ 1 MG/ML 1ML AMP IM PRN; -INFLIXIMAB BIOSIMILAR 400 MG in NS 210 ML IV ONE; -NS 1,000 ML IV SCH; -diphenhydrAMINE 50MG CAP PO ONE; -diphenhydrAMINE 50MG/ML VIAL (J1200) IV PRN; -methylPREDNISolone 125MG 2ML VIAL IV PRN
== END ==
LOC: M PAIN 08:30
PROVIDERS: ATTEND Anesthesiology
DX: M54.50 Low back pain, unspecified (principal); M25.552 Pain in left hip; M54.2 Cervicalgia; E03.9 Hypothyroidism, unspecified; F32.A Depression, unspecified; E11.9 Type 2 diabetes mellitus without complications; Z85.3 Personal history of malignant neoplasm of breast; D86.9 Sarcoidosis, unspecified; Z79.84 Long term (current) use of oral hypoglycemic drugs; Z79.891 Long term (current) use of opiate analgesic; Z79.899 Other long term (current) drug therapy; Z88.8 Allergy status to other drugs, medicaments and biological substances; Z91.018 Allergy to other foods; Z91.030 Bee allergy status

== ENCOUNTER 2022-01-04 09:55 | Outpatient (CLI) | payer MEDICARE ==
[~2022-01-04] VITALS: Ht 175.3 cm; Wt 82.4 kg
[2022-01-04] VITALS (8 sets, daily range): BP systolic 113–146; BP diastolic 66–89
[~2022-01-04 09:55] MED LIST changes: +ALBUTEROL SULFATE 2.5 MG/0.5 ML INH NEB SOLN INH PRN; +EPINEPHrine INJ 1 MG/ML 1ML AMP IM PRN; +diphenhydrAMINE 50MG CAP PO ONE; +diphenhydrAMINE 50MG/ML VIAL (J1200) IV PRN; +methylPREDNISolone 125MG 2ML VIAL IV PRN
[2022-01-04] MEDS ORDERED: diphenhydrAMINE 50MG PO PRIOR TO INFUSION PO ONE (10:00)
[2022-01-04] MEDS ORDERED: ACETAMINOPHEN 650MG PO PRIOR TO INFUSION PO ONE (10:00)
[2022-01-04] MEDS ORDERED: INFLIXIMAB BIOSIMILAR 400 MG in NS 210 ML IV ONE (10:00)
== END 2022-01-04 12:50 | disposition home or self-care (01) ==
LOC: M INFU 09:55
PROVIDERS: ATTEND Internal Medicine
DX: D86.86 Sarcoid arthropathy (principal); Z88.8 Allergy status to other drugs, medicaments and biological substances
CPT/HCPCS: 96413; 96415; Q5103

== ENCOUNTER 2022-01-18 10:01 | Outpatient (CLI) | payer MEDICARE ==
[~2022-01-18] VITALS: Ht 175.3 cm; Wt 82.4 kg
[2022-01-18] VITALS (7 sets, daily range): BP systolic 129–138; BP diastolic 73–87
[~2022-01-18 10:01] MED LIST changes: +ACETAMINOPHEN 650MG PO PRIOR TO INFUSION PO ONE; +INFLIXIMAB BIOSIMILAR 400 MG in NS 210 ML IV ONE; +NS 1,000 ML IV SCH
== END 2022-01-18 13:05 | disposition home or self-care (01) ==
LOC: M INFU 10:01
PROVIDERS: ATTEND Internal Medicine
DX: D86.86 Sarcoid arthropathy (principal); Z88.8 Allergy status to other drugs, medicaments and biological substances

== ENCOUNTER → 2022-02-01 | Outpatient (CLI) | payer MEDICARE ==
[~2022-02-01] VITALS: Ht 175.3 cm; Wt 82.4 kg
[~2022-02-01] MED LIST changes: -NS 1,000 ML IV SCH
[2022-02-01 11:45] VITALS: BP 167/101
[2022-02-01 12:15] VITALS: BP 146/83
[2022-02-01 12:30] VITALS: BP 147/89
[2022-02-01 13:00] VITALS: BP 147/89
[2022-02-01 13:35] VITALS: BP 151/96
== END ==
LOC: M INFU 10:15
PROVIDERS: ATTEND Internal Medicine
DX: D86.86 Sarcoid arthropathy (principal); Z88.8 Allergy status to other drugs, medicaments and biological substances
CPT/HCPCS: 96413; 96415; Q5103

== ENCOUNTER 2022-03-01 10:11 | Outpatient (CLI) | payer MEDICARE ==
[~2022-03-01] VITALS: Ht 172.7 cm; Wt 86.3 kg
[~2022-03-01 10:11] MED LIST changes: +NS 1,000 ML IV SCH; -diphenhydrAMINE 50MG CAP PO ONE
[2022-03-01 10:15] VITALS: BP 157/83
[2022-03-01] MEDS ORDERED: diphenhydrAMINE 50MG CAP PO ONE (11:05)
[2022-03-01 11:45] VITALS: BP 133/79
[2022-03-01 12:15] VITALS: BP 125/77
[2022-03-01 12:45] VITALS: BP 128/80
[2022-03-01 13:30] VITALS: BP 142/91
== END 2022-03-01 13:30 | disposition home or self-care (01) ==
LOC: M INFU 10:11
PROVIDERS: ATTEND Internal Medicine
DX: D86.86 Sarcoid arthropathy (principal); Z88.8 Allergy status to other drugs, medicaments and biological substances; Z91.018 Allergy to other foods
CPT/HCPCS: 96413; 96415; Q5103

== ENCOUNTER → 2022-04-13 | Outpatient (CLI) | payer MEDICARE ==
[~2022-04-13] MED LIST changes: -ACETAMINOPHEN 650MG PO PRIOR TO INFUSION PO ONE; -ALBUTEROL SULFATE 2.5 MG/0.5 ML INH NEB SOLN INH PRN; -EPINEPHrine INJ 1 MG/ML 1ML AMP IM PRN; -INFLIXIMAB BIOSIMILAR 400 MG in NS 210 ML IV ONE; -NS 1,000 ML IV SCH; -diphenhydrAMINE 50MG/ML VIAL (J1200) IV PRN; -methylPREDNISolone 125MG 2ML VIAL IV PRN
[2022-04-13 11:31] LABS: FREE T4 0.92 NG/DL (0.76-1.46); THYROID STIMULATING HORMONE 2.73 uIU/ML (0.358-3.740)
== END ==
LOC: M LAB 09:26
PROVIDERS: ATTEND Nurse Practitioner Family
DX: E03.9 Hypothyroidism, unspecified (principal)

== ENCOUNTER 2022-04-26 10:10 | Outpatient (CLI) | payer MEDICARE ==
[~2022-04-26] VITALS: Ht 175.3 cm; Wt 82.4 kg
[~2022-04-26 10:10] MED LIST changes: +ACETAMINOPHEN 650MG PO PRIOR TO INFUSION PO ONE; +ALBUTEROL SULFATE 2.5 MG/0.5 ML INH NEB SOLN INH PRN; +EPINEPHrine INJ 1 MG/ML 1ML AMP IM PRN; +INFLIXIMAB BIOSIMILAR 400 MG in NS 210 ML IV ONE; +diphenhydrAMINE 50MG PO PRIOR TO INFUSION PO ONE; +diphenhydrAMINE 50MG/ML VIAL (J1200) IV PRN; +methylPREDNISolone 125MG 2ML VIAL IV PRN
[2022-04-26 10:23] VITALS: BP 136/84
[2022-04-26 13:00] VITALS: BP 111/67
== END 2022-04-26 13:20 | disposition home or self-care (01) ==
LOC: M INFU 10:10
PROVIDERS: ATTEND Internal Medicine
DX: D86.86 Sarcoid arthropathy (principal); Z88.8 Allergy status to other drugs, medicaments and biological substances
CPT/HCPCS: 96413; 96415; Q5103

== ENCOUNTER → 2022-04-27 | Outpatient (CLI) | payer MEDICARE ==
[~2022-04-27] MED LIST changes: -ACETAMINOPHEN 650MG PO PRIOR TO INFUSION PO ONE; -ALBUTEROL SULFATE 2.5 MG/0.5 ML INH NEB SOLN INH PRN; -EPINEPHrine INJ 1 MG/ML 1ML AMP IM PRN; -INFLIXIMAB BIOSIMILAR 400 MG in NS 210 ML IV ONE; -diphenhydrAMINE 50MG PO PRIOR TO INFUSION PO ONE; -diphenhydrAMINE 50MG/ML VIAL (J1200) IV PRN; -methylPREDNISolone 125MG 2ML VIAL IV PRN
== END ==
LOC: M WHC 12:47
PROVIDERS: ATTEND Nurse Practitioner Women's Health
DX: Z12.31 Encounter for screening mammogram for malignant neoplasm of breast (principal); Z79.811 Long term (current) use of aromatase inhibitors; Z85.3 Personal history of malignant neoplasm of breast; Z78.0 Asymptomatic menopausal state; Z80.0 Family history of malignant neoplasm of digestive organs; Z80.3 Family history of malignant neoplasm of breast; Z92.3 Personal history of irradiation; Z92.21 Personal history of antineoplastic chemotherapy; M85.89 Other specified disorders of bone density and structure, multiple sites

== ENCOUNTER → 2022-06-26 | Outpatient (REF) | payer MEDICARE | LOC: M WUC 19:57 | PROVIDERS: ATTEND Physician Assistant | DX: J02.9 Acute pharyngitis, unspecified (principal) ==

== ENCOUNTER → 2022-06-26 | Outpatient (CLI) | payer MEDICARE ==
[2022-06-26 19:56] LABS: BASO # 0.1 10^3/uL (0.0-0.2); BASO % 0.8 % (0.0-1.0); EOS # 0.2 10^3/uL (0.0-0.5); EOS % 3.1 % (0.0-3.0); HEMATOCRIT 36.6 % (36.0-47.0); HEMOGLOBIN 11.5 g/dl (12.0-15.5); LYMPH # 2.7 10^3/uL (1.5-5.0); LYMPH % 36.7 % (24.0-44.0); MEAN CORPUSCULAR HEMOGLOBIN 26.4 pg (27.0-33.0); MEAN CORPUSCULAR HGB CONC 31.4 g/dl (32.0-36.5); MEAN CORPUSCULAR VOLUME 83.9 fl (80.0-96.0); MONO # 0.6 10^3/uL (0.0-0.8); MONO % 7.9 % (2.0-8.0); NEUTROPHILS # 3.7 10^3/uL (1.5-8.5); PLATELET COUNT, AUTOMATED 317 10^3/uL (150-450); RED BLOOD COUNT 4.36 10^6/uL (4.00-5.40); WHITE BLOOD COUNT 7.3 10^3/uL (4.0-10.0)
[2022-06-26 20:13] LABS: ALBUMIN 4.1 GM/DL (3.2-5.2); ALT/SGPT 136 U/L (12-78); BILIRUBIN,DIRECT 0.2 MG/DL (0.0-0.2); BILIRUBIN,TOTAL 0.6 MG/DL (0.2-1.0); BLOOD UREA NITROGEN 16 MG/DL (7-18); C REACTIVE PROTEIN QUANTITATIV 0.86 MG/DL (0.00-0.30); CALCIUM LEVEL 9.1 MG/DL (8.5-10.1); CARBON DIOXIDE LEVEL 30 MEQ/L (21-32); CHLORIDE LEVEL 98 MEQ/L (98-107); CREATININE FOR GFR 0.76 MG/DL (0.55-1.30); GLOMERULAR FILTRATION RATE > 60.0 (>51); GLUCOSE, FASTING 130 MG/DL (70-100); POTASSIUM SERUM 3.6 MEQ/L (3.5-5.1); SODIUM LEVEL 136 MEQ/L (136-145); TOTAL PROTEIN 7.9 GM/DL (6.4-8.2)
[2022-06-26 20:56] LABS: ERYTHROCYTE SEDIMENTATION RATE 14 mm/hr (0-30)
== END ==
LOC: M WUC 15:49
PROVIDERS: ATTEND Internal Medicine
DX: D86.86 Sarcoid arthropathy (principal)

== ENCOUNTER → 2022-12-27 | Outpatient (REF) | payer OTHER ==
[~2022-12-27] MED LIST changes: +INSU100I6 SC; -LEVE1INJ5 SC
== END ==
LOC: M WUC 20:06
PROVIDERS: ATTEND Student in an Organized Health Care Education/Training Program
DX: J02.9 Acute pharyngitis, unspecified (principal)

== ENCOUNTER → 2023-04-04 | Outpatient (CLI) | payer OTHER ==
[~2023-04-04] MED LIST changes: +ANAS1TAB2 PO; +B-12100010 PO; +DESV50TA PO; +E-Z-GAS II EFFERVESCENT PACKET (SODIUM BICARB./CITRIC ACID/SIMETHICONE) As Ordered ONE; +E-Z-HD 98% w/w 340GM SUSP BTL As Ordered ONE; +E-Z-PAQUE 96% w/w SUSP 176GM BTL As Ordered ONE; +EQL50TAB2 PO; +FAMO20TA PO; +INSU100I48 SQ; +LAMO200T3 PO; +LUMA21CA PO; +SEMA1PEN2 SQ
== END ==
LOC: M RAD 09:02
PROVIDERS: ATTEND Physician Assistant Medical
DX: R13.10 Dysphagia, unspecified (principal); K21.9 Gastro-esophageal reflux disease without esophagitis; R10.13 Epigastric pain

== ENCOUNTER 2023-04-10 12:44 | Day surgery (SDC) | payer OTHER ==
[~2023-04-10] VITALS: Ht 170.2 cm; Wt 79.8 kg
[~2023-04-10 12:44] MED LIST changes: -E-Z-GAS II EFFERVESCENT PACKET (SODIUM BICARB./CITRIC ACID/SIMETHICONE) As Ordered ONE; -E-Z-HD 98% w/w 340GM SUSP BTL As Ordered ONE; -E-Z-PAQUE 96% w/w SUSP 176GM BTL As Ordered ONE; +NS 1,000 ML IV ONE
[2023-04-10] MEDS ORDERED: propofoL 200 MG/20 ML VIAL As Ordered ONE (13:40)
[2023-04-10 13:52] VITALS: TEMP 96.6
[2023-04-10 14:15] VITALS: BP 123/78; O2SAT 96
== END 2023-04-10 14:29 | disposition home or self-care (01) ==
LOC: M OPP 12:44
PROVIDERS: ATTEND Internal Medicine Gastroenterology
DX: K22.89 Other specified disease of esophagus (principal); R13.10 Dysphagia, unspecified; Z79.02 Long term (current) use of antithrombotics/antiplatelets; Z79.84 Long term (current) use of oral hypoglycemic drugs; Z79.891 Long term (current) use of opiate analgesic; Z79.899 Other long term (current) drug therapy; Z88.8 Allergy status to other drugs, medicaments and biological substances; Z91.018 Allergy to other foods

== ENCOUNTER → 2023-05-17 | Outpatient (CLI) | payer MEDICARE, OTHER ==
[~2023-05-17] MED LIST changes: -NS 1,000 ML IV ONE; -ROPI0.253 PO; +ROPI5TAB19 PO
== END ==
LOC: M WHC 13:27
PROVIDERS: ATTEND Nurse Practitioner Women's Health
DX: Z12.31 Encounter for screening mammogram for malignant neoplasm of breast (principal); Z85.3 Personal history of malignant neoplasm of breast

== ENCOUNTER → 2023-08-22 | Outpatient (CLI) | payer OTHER ==
[2023-08-22 14:09] LABS: BASO % 0.5 % (0.0-1.0); EOS # 0.2 10^3/uL (0.0-0.5); EOS % 3.2 % (0.0-3.0); HEMATOCRIT 36.2 % (36.0-47.0); HEMOGLOBIN 11.3 g/dl (12.0-15.5); LYMPH % 35.4 % (24.0-44.0); MEAN CORPUSCULAR HEMOGLOBIN 24.9 pg (27.0-33.0); MEAN CORPUSCULAR HGB CONC 31.2 g/dl (32.0-36.5); MEAN CORPUSCULAR VOLUME 79.9 fl (80.0-96.0); MONO # 0.4 10^3/uL (0.0-0.8); NEUTROPHILS % 53.2 % (36.0-66.0); PLATELET COUNT, AUTOMATED 361 10^3/uL (150-450); RED BLOOD COUNT 4.53 10^6/uL (4.00-5.40); WHITE BLOOD COUNT 5.7 10^3/uL (4.0-10.0)
[2023-08-22 14:31] LABS: HEMOGLOBIN A1c 10.2 % (4.0-6.0)
== END ==
LOC: M LAB 13:06
PROVIDERS: ATTEND Nurse Practitioner Family
DX: E11.69 Type 2 diabetes mellitus with other specified complication (principal); I10 Essential (primary) hypertension; Z79.4 Long term (current) use of insulin

== ENCOUNTER → 2023-09-18 | Outpatient (REF) | LOC: M PLAIMG 14:41 | PROVIDERS: ATTEND Internal Medicine | DX: M54.50 Low back pain, unspecified (principal); M43.17 Spondylolisthesis, lumbosacral region ==

== ENCOUNTER → 2023-11-20 | Outpatient (CLI) | payer OTHER ==
[2023-11-20 11:19] LABS: BASO % 0.6 % (0.0-1.0); EOS # 0.1 10^3/uL (0.0-0.5); EOS % 2.4 % (0.0-3.0); HEMOGLOBIN 13.5 g/dl (12.0-15.5); LYMPH # 1.3 10^3/uL (1.5-5.0); LYMPH % 25.4 % (24.0-44.0); MEAN CORPUSCULAR HEMOGLOBIN 28.2 pg (27.0-33.0); MEAN CORPUSCULAR HGB CONC 32.9 g/dl (32.0-36.5); MEAN CORPUSCULAR VOLUME 85.6 fl (80.0-96.0); MONO # 0.4 10^3/uL (0.0-0.8); MONO % 6.9 % (2.0-8.0); NEUTROPHILS # 3.2 10^3/uL (1.5-8.5); NEUTROPHILS % 64.1 % (36.0-66.0); PLATELET COUNT, AUTOMATED 258 10^3/uL (150-450); RED BLOOD COUNT 4.79 10^6/uL (4.00-5.40)
[2023-11-20 11:47] LABS: ALBUMIN 3.9 G/DL (3.2-5.2); ALKALINE PHOSPHATASE 159 U/L (46-116); ALT/SGPT 86 U/L (7.0-40); AST/SGOT 65 U/L (<34); BILIRUBIN,TOTAL 0.6 MG/DL (0.3-1.2); BLOOD UREA NITROGEN 20 MG/DL (9-23); CARBON DIOXIDE LEVEL 31 MMOL/L (20-31); CHLORIDE LEVEL 101 MMOL/L (98-107); CREATININE FOR GFR 0.64 MG/DL (0.55-1.30); GLOMERULAR FILTRATION RATE > 60.0 (>51); GLUCOSE, FASTING 354 MG/DL (60-100); POTASSIUM SERUM 3.5 MMOL/L (3.5-5.1); SODIUM LEVEL 138 MMOL/L (136-145); TOTAL PROTEIN 7.1 G/DL (5.7-8.2)
== END ==
LOC: M LAB 10:45
PROVIDERS: ATTEND Nurse Practitioner
DX: C50.911 Malignant neoplasm of unspecified site of right female breast (principal); T50.905S Adverse effect of unspecified drugs, medicaments and biological substances, sequela; Z79.811 Long term (current) use of aromatase inhibitors; R13.10 Dysphagia, unspecified

== ENCOUNTER → 2024-03-20 | Outpatient (CLI) | payer OTHER | LOC: M EKG 09:38 | PROVIDERS: ATTEND Ophthalmology | DX: Z01.818 Encounter for other preprocedural examination (principal); H02.423 Myogenic ptosis of bilateral eyelids; R94.31 Abnormal electrocardiogram [ECG] [EKG]; I25.2 Old myocardial infarction ==

== ENCOUNTER → 2024-09-18 | Outpatient (REF) | payer OTHER ==
[2024-09-19 13:22] LABS: APPEARANCE, URINE CLOUDY (CLEAR); BACTERIA, URINE AUTO 3+ (NEGATIVE); BILIRUBIN, URINE AUTO NEGATIVE (NEGATIVE); BLOOD, URINE BLOOD 1+ (NEGATIVE); COLOR, URINE AMBER (YELLOW); GLUCOSE, URINE (UA) AUTO 3+ mg/dL (NEGATIVE); KETONE, URINE AUTO NEGATIVE (NEGATIVE); LEUKOCYTE ESTERASE, URINE AUTO 3+ (NEGATIVE); MUCUS, URINE SMALL (NEGATIVE); NITRITE, URINE AUTO NEGATIVE (NEGATIVE); PROTEIN, URINE AUTO NEGATIVE (NEGATIVE); RBC, URINE AUTO 26 /HPF (0-3); SPECIFIC GRAVITY URINE AUTO 1.033 (1.002-1.035); SQUAMOUS EPITHELIAL CELL UR AU 0 /HPF (0-6); WBC, URINE AUTO 105 /HPF (0-3)
== END ==
LOC: M SMT 10:05
PROVIDERS: ATTEND Nurse Practitioner Family
DX: N39.0 Urinary tract infection, site not specified (principal)

== ENCOUNTER → 2024-10-10 | Outpatient (CLI) | payer OTHER | LOC: M WHC 08:20 | PROVIDERS: ATTEND Internal Medicine Hematology & Oncology | DX: Z12.31 Encounter for screening mammogram for malignant neoplasm of breast (principal); C50.911 Malignant neoplasm of unspecified site of right female breast; T50.905S Adverse effect of unspecified drugs, medicaments and biological substances, sequela; R13.10 Dysphagia, unspecified; Z79.811 Long term (current) use of aromatase inhibitors ==

== ENCOUNTER → 2024-11-15 | Outpatient (CLI) | payer OTHER ==
[2024-11-15 13:35] LABS: BASO % 0.5 % (0.0-1.0); EOS # 0.2 10^3/uL (0.0-0.5); EOS % 2.7 % (0.0-3.0); HEMOGLOBIN 14.3 g/dl (12.0-15.5); LYMPH # 2.2 10^3/uL (1.5-5.0); LYMPH % 37.8 % (24.0-44.0); MEAN CORPUSCULAR HEMOGLOBIN 29.9 pg (27.0-33.0); MEAN CORPUSCULAR HGB CONC 33.3 g/dl (32.0-36.5); MEAN CORPUSCULAR VOLUME 89.8 fl (80.0-96.0); MONO # 0.4 10^3/uL (0.0-0.8); MONO % 6.5 % (2.0-8.0); PLATELET COUNT, AUTOMATED 299 10^3/uL (150-450); RED BLOOD COUNT 4.79 10^6/uL (4.00-5.40); WHITE BLOOD COUNT 5.8 10^3/uL (4.0-10.0)
[2024-11-15 13:40] LABS: ERYTHROCYTE SEDIMENTATION RATE 8 mm/hr (0-30)
[2024-11-15 14:06] LABS: ALBUMIN 4.3 G/DL (3.2-5.2); ALKALINE PHOSPHATASE 117 U/L (35-104); ALT/SGPT 71 U/L (7.0-40); AST/SGOT 50 U/L (<34); BILIRUBIN,DIRECT 0.3 MG/DL (<0.4); BILIRUBIN,TOTAL 0.6 MG/DL (0.3-1.2); BLOOD UREA NITROGEN 15 MG/DL (9-23); C REACTIVE PROTEIN QUANTITATIV < 0.50 MG/DL (<1.0); CALCIUM LEVEL 9.9 MG/DL (8.5-10.1); CARBON DIOXIDE LEVEL 32 MMOL/L (20-31); CHLORIDE LEVEL 104 MMOL/L (98-107); CREATININE FOR GFR 0.77 MG/DL (0.55-1.30); GLOMERULAR FILTRATION RATE > 60.0 (>51); GLUCOSE, FASTING 140 MG/DL (60-100); POTASSIUM SERUM 3.9 MMOL/L (3.5-5.1); SODIUM LEVEL 146 MMOL/L (136-145)
[2024-11-15 14:07] LABS: IMMUNOGLOBULIN A 274.2 MG/DL (40-350); IMMUNOGLOBULIN G 1087 MG/DL (650-1600); IMMUNOGLOBULIN M 123.1 MG/DL (50-300); RHEUMATOID FACTOR QUANT < 3.5 IU/ML (<14)
[2024-11-17 15:37] LABS: ANGIOTENSIN 1 CONVERTING ENZYM 29 U/L (9-67)
== END ==
LOC: M RAD 12:28
PROVIDERS: ATTEND Internal Medicine
DX: D86.86 Sarcoid arthropathy (principal)

== ENCOUNTER → 2024-12-29 | Outpatient (CLI) | payer MEDICARE, OTHER | LOC: M RAD 14:17 | PROVIDERS: ATTEND Nurse Practitioner Family | DX: R93.421 Abnormal radiologic findings on diagnostic imaging of right kidney (principal); R93.422 Abnormal radiologic findings on diagnostic imaging of left kidney; Z87.442 Personal history of urinary calculi ==

== ENCOUNTER → 2025-08-07 | Outpatient (CLI) | payer MEDICARE ==
[~2025-08-07] MED LIST changes: +AMLO-751 PO; -AMLO10TA PO; -EQL50TAB2 PO; -FLOM0.4C39 PO; +TAMS-18 PO; +TOPI-257 PO; -TOPI100T9 PO; +VITA1TAB82 PO
[2025-08-07 11:42] LABS: BASO # 0.0 10^3/uL (0.0-0.2); BASO % 0.6 % (0.0-1.0); EOS # 0.2 10^3/uL (0.0-0.5); EOS % 3.9 % (0.0-3.0); LYMPH # 1.6 10^3/uL (1.5-5.0); LYMPH % 30.2 % (24.0-44.0); MONO # 0.4 10^3/uL (0.0-0.8); MONO % 8.1 % (2.0-8.0); NEUTROPHILS # 2.9 10^3/uL (1.5-8.5); NEUTROPHILS % 56.6 % (36.0-66.0); PLATELET COUNT, AUTOMATED 274 10^3/uL (150-450)
[2025-08-07 12:18] LABS: ALT/SGPT 88 U/L (7.0-40); AST/SGOT 52 U/L (<34); CALCIUM LEVEL 9.8 MG/DL (8.5-10.1); CARBON DIOXIDE LEVEL 30 MMOL/L (20-31); CHLORIDE LEVEL 101 MMOL/L (98-107); CREATININE FOR GFR 0.70 MG/DL (0.55-1.30); GLOMERULAR FILTRATION RATE > 90.0 (>51); POTASSIUM SERUM 3.7 MMOL/L (3.5-5.1); SODIUM LEVEL 143 MMOL/L (136-145)
[2025-08-07 12:21] LABS: TOTAL 25(OH) VITAMIN D 26.1 NG/ML (20.0-100.0)
== END ==
LOC: M LAB 11:06
DX: C50.911 Malignant neoplasm of unspecified site of right female breast (principal); E55.9 Vitamin D deficiency, unspecified; Z79.811 Long term (current) use of aromatase inhibitors; R13.10 Dysphagia, unspecified; T50.905S Adverse effect of unspecified drugs, medicaments and biological substances, sequela